=== PATIENT | female | born 1965 | race Caucasian/White ===

== ENCOUNTER → 2016-08-23 | Outpatient (CLI) | payer BC ==
--- NOTE | 2016-08-23 07:57 | MR ---
EXAMINATION TYPE: MR tib fib LT wo/w con DATE OF EXAM: 08/23/2016 7:22 AM COMPARISON: NONE HISTORY: persistent manish edema CONTRAST: Standard multiplanar, multisequence MRI departmental protocol utilizing 15 mL intravenous MultiHance gadolinium contrast. TECHNIQUE: Multiplanar MultiSpin echo imaging of the left tibia and fibula was performed both before and after the administration of contrast. FINDINGS: Within the left tibial diaphysis approximately 21 cm distal to the tibial plateau is anterior cortica l periosteal reaction with cortical thickening. There is a subcortical lesion of decreased signal on T1-weighted data set and of increased signal on the T2-weighted data set measuring approximately 10 m m x 4.5 mm. There may be a small central calcified nidus seen on axial image 22 of 50 post contrast f at sat data set. There is also mild intramedullary edema noted. In addition there is edema of the charan rounding soft tissues anteriorly. No additional lesions are identified. Differential diagnostic possi bilities include intracortical abscess, osteoid osteoma, osteoblastoma among other lesions. IMPRESSION: Periosteal reaction involving the anterior left tibia with subcortical lesion as well as intramedulla ry and surrounding tissue edema. Mild peripheral enhancement suggested on postcontrast imaging. Diff erential diagnostic possibilities discussed above. Strict clinical correlation is advised.
== END | disposition home or self-care (01) ==
LOC: RADMRIMAIN 06:02
PROVIDERS: ATTEND Nurse Practitioner Family
DX: R60.0 Localized edema (principal)
CPT/HCPCS: 73720; A9577

== ENCOUNTER → 2016-10-19 | Outpatient (CLI) | payer BC ==
--- NOTE | 2016-10-19 13:23 | BD ---
EXAMINATION TYPE: MG DEXA axial skeleton. DATE OF EXAM: 10/19/2016 12:58 PM COMPARISON: NONE CLINICAL HISTORY: Z13.820 OSTEOPOROSIS Height: 68 Weight: 182 FRAX RISK QUESTIONS: Alcohol (3 or more units per day): NO Family History (Parent hip fracture): NO Glucocorticoids (More than 3mos): YES (Ex: prednisone, prednisolone, methylprednisolone, dexamethasone, and hydrocortisone). History of Fracture in Adulthood: YES Secondary Osteoporosis: NO 1. Type 1 Diabetes: NO 2. Hyperthyroidism: NO 3. Menopause before 45: NA 4. Malnutrition: NO 5. Chronic liver disease:NO Rheumatoid Arthritis: NO Current Tobacco Use: NO RISK FACTORS HISTORY OF: History of Wrist Fracture: LT WRIST When: AT 46 YRS OLD Other Fractures since Age 50: BILAT STRESS FX BOTH TIB FIBS When: 51 YRS OLD Family History of Osteoporosis: NO Smoke tobacco: NO Drink Alcohol: NO Active: YES, EXCEPT RECENTLY Diet low in dairy products/other sources of calcium: ALLERGIC TO DAIRY, SO , YES Postmenopausal woman: PARTIAL HYST, AT 42 YRS OLD Adrenal Insufficiency: NO MEDICATIONS: Prednisone or other steroids: PREDNISONE, How Lon YRS, FEW YRS BACK Additional Medications: VIT D 2000 MGS, ASPIRIN DAILY, NORCO AND MOTRIN PRN Additional History: ANTIPHOSPHOLIPID ANTIBODY SYNDROME STRESS FX BOTH TIB FIBS EXAM MEASUREMENTS: Bone mineral densitometry was performed using the [employer] System. Bone mineral density as measured about the Lumbar spine is: ----- L1-L4(G/cm2): 1.152 T Score Values are as follows: ----- L1: -1.0 ----- L2: -1.4 ----- L3: 0.3 ----- L4: 0.7 ----- L1-L4: -0.2 Bone mineral density THIS IS HER FIRST BONE DENSITY TEST.....BASELINE Bone mineral density about the R hip (g/cm2): 0.854 Bone mineral density about the L hip (g/cm2): 0.956 T Score values are as follows: -----R Neck: -1.3 -----L Neck: -0.6 -----R Intertrochanter: -1.3 -----L Intertrochanter: -0.5 Bone mineral density FIRST BONE DENSITY SCAN FOR HER.....BASELINE FRAX %'S: 9.1% CHANCE OF A MAJOR OSTEOPOROTIC FX AND A 0.7% FOR A HIP FX.....PROBABILITY OF FX IN 1 0 YRS TIME IMPRESSION: Osteopenia (T Score between -2.5 and -1 as noted by T score values There is slightly increased risk of fracture and the patient may be considered for treatment. Re-Screen 1-2 years. FOR HER RIGHT HIP AND L2 ONLY OF LUMBAR SPINE NOTE: T-SCORE=SD OF THE YOUNG ADULT MEAN.
== END | disposition home or self-care (01) ==
LOC: RADBDWWP 12:21
PROVIDERS: ATTEND Internal Medicine Endocrinology, Diabetes & Metabolism
DX: Z13.820 Encounter for screening for osteoporosis (principal); M85.80 Other specified disorders of bone density and structure, unspecified site
CPT/HCPCS: 77080

== ENCOUNTER → 2016-10-24 | Outpatient (CLI) | payer BC ==
--- NOTE | 2016-10-24 14:40 | NM ---
EXAMINATION TYPE: NM bone scan whole body DATE OF EXAM: 10/24/2016 2:21 PM COMPARISON: MRI 08/23/2016 HISTORY: Stress fractures with nonunion Delayed whole-body scanning was performed following the injection of 24.8 mCi Tc 99m MDP. Images wer e acquired 3 hours post injection. FINDINGS: There is increased uptake within the proximal diaphyseal right tibia cortex. There is focal increased uptake within the region of the distal diaphyseal left fibula. These areas could be related to prior stress fractures. Differential diagnosis from the MRI could also be considered which would include i ntracortical abscess, osteoid osteoma, and osteoblastoma. Bone scan does not eliminate these possibil ities. The right cortical hyperintensities are atypical for metastatic disease. Remainder of the axial and appendicular skeleton within the [id number] is normal radiotracer distr ibution. IMPRESSION: 1. Hyperintensity within the cortex of the proximal diaphyseal right tibia and within the mid diaphys eal left tibia. Plain film correlation is recommended. Plain films aren't available at this location.
== END | disposition home or self-care (01) ==
LOC: RADNMMAIN 10:27
PROVIDERS: ATTEND Orthopaedic Surgery
DX: M84.369 Stress fracture, unspecified tibia and fibula (principal)
CPT/HCPCS: 78306; A9503

== ENCOUNTER → 2017-04-22 | Outpatient (CLI) | payer BC ==
[2017-04-24 08:49] LABS: Mis test requested (Blood) Proteinase-3 Ab
== END | disposition home or self-care (01) ==
LOC: LABWHC1 11:46
PROVIDERS: ATTEND Physician Assistant Medical
DX: M31.30 Wegener's granulomatosis without renal involvement (principal)
CPT/HCPCS: 36415; 82784; 82785; 83516; 84165; 86140

== ENCOUNTER → 2017-11-28 | Outpatient (CLI) | payer BC ==
--- NOTE | 2017-11-29 10:06 | MM ---
Reason for exam: screening (asymptomatic). Last mammogram was performed 7 years and 2 months ago. History: Patient is postmenopausal. Family history of breast cancer in 2 paternal aunts. Physical Findings: A clinical breast exam by your physician is recommended on an annual basis and results should be correlated with mammographic findings. MG 3D Screening Mammo W/Cad Bilateral CC, MLO, and XCCL view(s) were taken. Prior study comparison: October 11, 2010, bilateral digital screening mammo w/CAD. December 09, 2008, bilateral diagnostic digital mammog. The breast tissue is extremely dense which could obscure a lesion on mammography. There is chronic nodularity bilaterally. There is no dominant lesion. No significant changes when compared with prior studies. ASSESSMENT: Benign, BI-RAD 2 RECOMMENDATION: Routine screening mammogram of both breasts in 1 year.
== END | disposition home or self-care (01) ==
LOC: RADMAMWWP 10:49
PROVIDERS: ATTEND Obstetrics & Gynecology
DX: Z12.31 Encounter for screening mammogram for malignant neoplasm of breast (principal); Z80.3 Family history of malignant neoplasm of breast
CPT/HCPCS: 77063; 77067

== ENCOUNTER → 2017-12-24 | Outpatient (CLI) | payer BC ==
[2017-12-24 11:26] LABS: Basophils # (A) 0.1 k/uL (0-0.2); Basophils % (A) 1 %; Eosinophils # (A) 0.1 k/uL (0-0.7); Eosinophils % (A) 2 %; HCT 40.9 % (34.0-46.0); HGB 13.5 gm/dL (11.4-16.0); Lymphocytes # (A) 1.2 k/uL (1.0-4.8); Lymphocytes % (A) 21 %; MCHC 32.9 g/dL (31.0-37.0); Mean Platelet Volume 7.5; Monocytes # (A) 0.4 k/uL (0-1.0); Monocytes % (A) 7 %; Neutrophils # (A) 3.7 k/uL (1.3-7.7); Neutrophils % (A) 67 %; Platelet Count 290 k/uL (150-450); RBC 4.49 m/uL (3.80-5.40); RDW 12.1 % (11.5-15.5); WBC 5.5 k/uL (3.8-10.6)
[2017-12-24 11:33] LABS: ALT 27 U/L (9-52); AST 19 U/L (14-36); Cholesterol 185 mg/dL (<200); Magnesium 1.9 mg/dL (1.6-2.3); Triglycerides 104 mg/dL (<150)
[2017-12-24 11:51] LABS: HCG,Quantitative Serum <2.4 mIU/mL
== END | disposition home or self-care (01) ==
LOC: LABWHC1 10:46
PROVIDERS: ATTEND Dermatology Procedural Dermatology
DX: M31.30 Wegener's granulomatosis without renal involvement (principal)
CPT/HCPCS: 36415; 82465; 82565; 83735; 84450; 84460; 84478; 84702; 85025

== ENCOUNTER → 2018-12-29 | Outpatient (CLI) | payer BC ==
--- NOTE | 2018-12-29 15:18 | US ---
EXAMINATION TYPE: US thyroid st tissue head/neck DATE OF EXAM: 12/29/2018 COMPARISON: NONE CLINICAL HISTORY: E04.2 Nontoxic multinodular goiter. GLAND SIZE: Right Lobe: 5.2 x 1.5 x 1.7 cm Overall Parenchyma: homogenous Left Lobe: 4.5 x 1.2 x 1.5 cm Overall Parenchyma: homogeneous Isthmus Thickness: 0.3 cm NODULES RIGHT: # of nodules measured on right: 1. 1.0 X 0.6 x 1.0 cm hypoechoic solid nodule at the upper pole with well-defined margins. This no dule is wider than tall and shows intranodular vascularity. No prior 2. 1.0 X 0.6 x 0.8 cm anechoic cystic nodule at the lat mid pole with well-defined margins . This n odule is taller than wide and shows no intranodular vascularity. No prior 3. 1.5 X 1.3 x 0.9 cm hypoechoic solid nodule at the lower pole with well-defined marginsinterrupted peripheral calcification. This nodule is taller than wide and shows no intranodular vascularity. LEFT: # of nodules measured on left: 0 subcentimeter nodule noted ISTHMUS: # of nodules measured in the isthmus: 0 Bilateral neck scanned, no evidence of lymphadenopathy. IMPRESSION: Multiple right thyroid nodules measuring up to 1.5 cm. One of these appear cystic and teetee ign. The largest corresponds to a TI-RADS 4 nodule by criteria. (Moderately Suspicious: FNA if ? 1.5 cm; Follow if ? 1 cm). Therefore fine-needle aspiration could be considered given the size of 1.5 cm.
== END | disposition home or self-care (01) ==
LOC: RADUSWWP 14:13
PROVIDERS: ATTEND Family Medicine
DX: E04.2 Nontoxic multinodular goiter (principal)
CPT/HCPCS: 76536

== ENCOUNTER → 2019-04-15 | Outpatient (CLI) | payer BC ==
--- NOTE | 2019-04-17 10:20 | MM ---
Reason for exam: screening (asymptomatic). Last mammogram was performed 1 year and 4 months ago. History: Patient is postmenopausal. Family history of breast cancer in 2 paternal aunts. Physical Findings: A clinical breast exam by your physician is recommended on an annual basis and results should be correlated with mammographic findings. MG 3D Screening Mammo W/Cad Bilateral CC and MLO view(s) were taken. Prior study comparison: November 28, 2017, bilateral MG 3d screening mammo w/cad. October 11, 2010, bilateral digital screening mammo w/CAD. The breast tissue is extremely dense which could obscure a lesion on mammography. Benign appearing bilateral calcifications. No suspicious abnormality. No significant changes when compared with prior studies. ASSESSMENT: Benign, BI-RAD 2 RECOMMENDATION: Routine screening mammogram of both breasts in 1 year.
== END | disposition home or self-care (01) ==
LOC: RADMAMWWP 07:15
PROVIDERS: ATTEND Obstetrics & Gynecology Obstetrics
DX: Z12.31 Encounter for screening mammogram for malignant neoplasm of breast (principal); Z80.3 Family history of malignant neoplasm of breast
CPT/HCPCS: 77063; 77067

== ENCOUNTER → 2019-07-02 | Outpatient (CLI) | payer BC ==
--- NOTE | 2019-07-03 09:53 | US ---
EXAMINATION TYPE: US thyroid st tissue head/neck DATE OF EXAM: 07/02/2019 COMPARISON: 12/29/2018 CLINICAL HISTORY: E04.1 Thyroid Nodule. Thyroid nodule GLAND SIZE: Right Lobe: 5.2 x 1.6 x 2.0 cm Overall Parenchyma: homogenous Left Lobe: 5.0 x 1.1 x 1.5 cm Overall Parenchyma: homogeneous Isthmus Thickness: 0.2 cm NODULES RIGHT: # of nodules measured on right: 3 1. 1.0 X .7 x .9 cm mixed nodule at the mid/upper pole with well-defined margins; . This nodule is wider than tall and shows intranodular vascularity. Prior size: 1.0 x .6 x 1.0 cm 2. 1.1 X .8 x .7 cm cystic nodule at the lower pole with well-defined margins; . This nodule is wid er than tall and shows no intranodular vascularity. Prior size: 1.0 x .6 x .8 cm 3. 1.7 X 1.2 x 1.3 cm hypoechoic solid nodule at the lower pole with well-defined margins; . This n odule is wider than tall and shows intranodular vascularity. Prior size: 1.5 x 1.3 x .9 cm LEFT: # of nodules measured on left: 0 ISTHMUS: # of nodules measured in the isthmus: 0 Bilateral neck scanned, no evidence of lymphadenopathy. IMPRESSION: 1. Interval growth of the TI-RADS 4 right thyroid nodule in comparison to 12/29/2018. Fine-needle aspi ration should be considered. Remaining right nodules are similar in size.
== END | disposition home or self-care (01) ==
LOC: RADUSWWP 15:30
PROVIDERS: ATTEND Otolaryngology
DX: E04.1 Nontoxic single thyroid nodule (principal); R22.0 Localized swelling, mass and lump, head
CPT/HCPCS: 76536

== ENCOUNTER → 2019-08-18 | Outpatient (CLI) | payer BC ==
[2019-08-18 19:04] LABS: T4, Free (Free Thyroxine) 1.3 ng/dL (0.80-1.80)
== END | disposition home or self-care (01) ==
LOC: LABWHC1 12:00
PROVIDERS: ATTEND Otolaryngology
DX: E04.1 Nontoxic single thyroid nodule (principal); R53.83 Other fatigue
CPT/HCPCS: 36415; 84439; 84443

== ENCOUNTER → 2020-04-07 | Outpatient (CLI) | payer BC ==
--- NOTE | 2020-04-08 12:44 | US ---
EXAMINATION TYPE: US thyroid st tissue head/neck DATE OF EXAM: 04/07/2020 COMPARISON: NONE CLINICAL HISTORY: E04.1 thyroid nodule. follow up thyroid nodule GLAND SIZE: Right Lobe: 5.4 x 1.5 x 1.8 cm Overall Parenchyma: homogenous Left Lobe: 4.2 x 1.1 x 1.6 cm Overall Parenchyma: homogeneous Isthmus Thickness: 0.3 cm NODULES RIGHT: # of nodules measured on right: 2 1. 1.2 X 0.8 x 1.0 cm mixed nodule at the mid pole with poorly defined margins; . This nodule is w ider than tall and shows intranodular vascularity. Prior size: 1.0 x 0.7 x 0.9 cm 2. 1.7 X 1.3 x 1.5 cm hypoechoic solid nodule at the lower pole with well-defined margins; . This n odule is wider than tall and shows intranodular vascularity. Prior size: 1.7 x 1.2 x 1.3 cm LEFT: # of nodules measured on left: 0 ISTHMUS: # of nodules measured in the isthmus: 0 Bilateral neck scanned, no evidence of lymphadenopathy. IMPRESSION: Dominant lesion inferior pole right lobe of the thyroid gland is TR 4, moderately suspicious, FNA is recommended due to size greater than 1.5 cm. Midpole right lobe thyroid gland nodule also moderately suspicious, additional follow-up recommended at 1, 2, 3 years to assess for interval growth
== END | disposition home or self-care (01) ==
LOC: RADUSWWP 16:11
PROVIDERS: ATTEND Otolaryngology
DX: E04.1 Nontoxic single thyroid nodule (principal)
CPT/HCPCS: 76536

== ENCOUNTER 2020-04-25 12:06 | Day surgery (SDC) | payer BC ==
[2020-04-25] MEDS ORDERED: ALPRAZolam 0.5 MG TAB PO STA (12:54)
[2020-04-25 14:28] VITALS: RESP 18; TEMP 98.4
[2020-04-25 14:29] VITALS: BP 138/70; PULSE 74
--- NOTE | 2020-04-25 14:59 | US ---
EXAMINATION TYPE: US FNA thyroid each add lesion, US FNA first lesion DATE OF EXAM: 04/25/2020 COMPARISON: Ultrasound 04/07/2020, 12/29/2018 HISTORY: Thyroid nodules. Maximal barrier technique was utilized. After informed consent, skin overlying the right mid pole th yroid nodule was localized with ultrasound and the overlying skin prepped and draped. Ultrasound was utilized using sterile technique. Lidocaine was used for local anesthesia. Five passes with a 25-gau ge needle were made into the nodule and aspirated specimen was submitted to cytology. Using similar t echnique the dominant nodule in the lower pole the right lobe of the gland was sampled. 5 passes unde r ultrasound guidance were made with a 25-gauge needle and specimen submitted to cytology. Following the procedure hemostasis achieved. No immediate complication. The patient discharged in stable cond ition. IMPRESSION: STATUS POST ULTRASOUND GUIDED FINE NEEDLE ASPIRATION OF THYROID NODULES, PATHOLOGY IS MAHESH BUCKNER. THIS PROCEDURE WAS PERFORMED BY THE UNDERSIGNED.
== END 2020-04-25 14:30 | disposition home or self-care (01) ==
LOC: RADPROMAIN 12:06
PROVIDERS: ATTEND Otolaryngology
DX: E04.2 Nontoxic multinodular goiter (principal)
CPT/HCPCS: 10005; 10006; 88173; 88305

== ENCOUNTER → 2020-06-10 | Outpatient (CLI) | payer BC ==
--- NOTE | 2020-06-13 13:24 | MM ---
Reason for exam: screening (asymptomatic). Last mammogram was performed 1 year and 2 months ago. History: Patient is postmenopausal. Family history of breast cancer in 2 paternal aunts. Physical Findings: A clinical breast exam by your physician is recommended on an annual basis and results should be correlated with mammographic findings. MG 3D Screening Mammo W/Cad Bilateral CC and MLO view(s) were taken. Prior study comparison: April 15, 2019, bilateral MG 3d screening mammo w/cad. November 28, 2017, bilateral MG 3d screening mammo w/cad. The breast tissue is extremely dense which could obscure a lesion on mammography. No significant changes when compared with prior studies. ASSESSMENT: Benign, BI-RAD 2 RECOMMENDATION: Routine screening mammogram of both breasts in 1 year.
== END | disposition home or self-care (01) ==
LOC: RADMAMWWP 13:51
PROVIDERS: ATTEND Obstetrics & Gynecology Obstetrics
DX: Z12.31 Encounter for screening mammogram for malignant neoplasm of breast (principal)
CPT/HCPCS: 77063; 77067

== ENCOUNTER → 2021-06-02 | Outpatient (CLI) | payer BC ==
[2021-06-02 15:09] LABS: Basophils # (A) 0.03 X 10*3/uL (0.00-0.10); Basophils % (A) 0.4 %; Eosinophils # (A) 0.72 X 10*3/uL (0.04-0.35); HCT 40.2 % (37.2-46.3); HGB 12.9 g/dL (12.0-15.0); Lymphocytes # (A) 1.25 X 10*3/uL (0.90-5.00); Lymphocytes % (A) 15.7 %; MCH 29.5 pg (27.0-32.0); MCHC 32.1 g/dL (32.0-37.0); Mean Platelet Volume 11.4 fL (9.5-12.2); Monocytes # (A) 0.55 X 10*3/uL (0.20-1.00); Monocytes % (A) 6.9 %; Neutrophils # (A) 5.41 X 10*3/uL (1.80-7.70); Neutrophils % (A) 67.7 %; Platelet Count 295 X 10*3/uL (140-440); RBC 4.37 X 10*6/uL (4.10-5.20); RDW 12.3 % (11.5-14.5); WBC 7.98 X 10*3/uL (4.50-10.00)
[2021-06-02 16:27] LABS: African American GFR (CKD) 114.5 (60.0-200.0); Albumin 4.2 g/dL (3.8-4.9); Albumin/Globulin Ratio 1.35 (1.60-3.17); Anion Gap 11.6 mmol/L (4.00-12.00); BUN/Creat Ratio 14.83 Ratio (12.00-20.00); Blood Urea Nitrogen 9.8 mg/dL (9.0-27.0); C Reactive Protein 0.3 mg/dL (0.00-0.80); Calcium 9.3 mg/dL (8.7-10.3); Carbon Dioxide 22.9 mmol/L (21.6-31.8); Estradiol 33.1 pg/mL; Follicle Stimulating Hormone 8.8 mIU/mL; Globulin 3.1 g/dL (1.6-3.3); Luteinizing Hormone 4.4 mIU/mL; Non-African American GFR(CKD) 98.8 (60.0-200.0); Potassium 4.3 mmol/L (3.5-5.5); T4, Free (Free Thyroxine) 1.24 ng/dL (0.800-1.800); Total Bilirubin 0.5 mg/dL (0.30-1.20); Total Protein 7.3 g/dL (6.2-8.2)
[2021-06-02 17:48] LABS: Erythrocyte Sedimentation Rate 27 mm/Hr (0-30)
== END | disposition home or self-care (01) ==
LOC: LABWHC1 09:52
PROVIDERS: ATTEND Family Medicine
DX: Z12.11 Encounter for screening for malignant neoplasm of colon (principal); Z12.31 Encounter for screening mammogram for malignant neoplasm of breast; D68.61 Antiphospholipid syndrome; R53.83 Other fatigue; M85.80 Other specified disorders of bone density and structure, unspecified site; Z80.0 Family history of malignant neoplasm of digestive organs; Z68.24 Body mass index [BMI] 24.0-24.9, adult
CPT/HCPCS: 36415; 80053; 82670; 83001; 83002; 84144; 84439; 84443; 85025; 85652; 86038; 86140

== ENCOUNTER → 2021-06-30 | Outpatient (CLI) | payer BC ==
--- NOTE | 2021-06-30 16:09 | BD ---
EXAMINATION TYPE: Axial Bone Density DATE OF EXAM: 06/30/2021 COMPARISON: 10/19/2016 CLINICAL HISTORY: Height: 68.5 IN Weight: 171 LBS FRAX RISK QUESTIONS: Secondary Osteoporosis: 3. Menopause before 45: PARTIAL HYST AGE 44 RISK FACTORS HISTORY OF: History of Wrist Fracture: LT WRIST AGE 45 Family History of Osteoporosis: FATHER AND MOTHER Active: YES Diet low in dairy products/other sources of calcium: YES Postmenopausal woman: PARTIAL HYST AGE 44 MEDICATIONS: Additional Medications: CALCIUM, VIT D, ASPIRIN, ZYRTEC, ZINC, VIT C, MAGNESIUM Additional History: PT HAD 4 RADIATION TREATMENTS 8 YEARS AGO TO MAKE SURE THEY HAD FOUND PTS PROBLEM EXAM MEASUREMENTS: Bone mineral densitometry was performed using the [employer] System. Bone mineral density as measured about the Lumbar spine is: ----- L1-L4(G/cm2): 1.080 T Score Values are as follows: ----- L2: -2.1 ----- L3: -0.4 ----- L4: -0.1 ----- L1-L4: -0.8 Bone mineral density has: Decreased -7.5% since study of: 10/19/2016 Bone mineral density about the R hip (g/cm2): 0.825 Bone mineral density about the L hip (g/cm2): 0.884 T Score values are as follows: -----R Neck: -1.5 -----L Neck: -1.1 -----R Total: -1.5 -----L Total: -1.1 Bone mineral density has: Decreased -4.1% since study of: 10/19/2016 IMPRESSION: Osteopenia (T Score between -2.5 and -1). There is slightly increased risk of fracture and the patient may be considered for treatment. Re-Screen 2-5 years. NOTE: T-SCORE=SD OF THE YOUNG ADULT MEAN.
--- NOTE | 2021-07-04 11:35 | MM ---
Reason for exam: screening (asymptomatic). Last mammogram was performed 1 year and 1 month ago. History: Patient is postmenopausal. Family history of breast cancer in 2 paternal aunts. Physical Findings: A clinical breast exam by your physician is recommended on an annual basis and results should be correlated with mammographic findings. MG 3D Screening Mammo W/Cad Bilateral CC and MLO view(s) were taken. Prior study comparison: June 10, 2020, bilateral MG 3d screening mammo w/cad. April 15, 2019, bilateral MG 3d screening mammo w/cad. The breast tissue is heterogeneously dense. This may lower the sensitivity of mammography. Grouped calcifications posterior central left MLO view not clearly identified on CC. ASSESSMENT: Incomplete: need additional imaging evaluation, BI-RAD 0 RECOMMENDATION: Special view mammogram of the left breast. (magnification) [facility] will attempt to contact patient to return for supplemental views.
== END | disposition home or self-care (01) ==
LOC: RADBDWWP 14:45
PROVIDERS: ATTEND Family Medicine
DX: Z12.31 Encounter for screening mammogram for malignant neoplasm of breast (principal); M85.80 Other specified disorders of bone density and structure, unspecified site
CPT/HCPCS: 77063; 77067; 77080

== ENCOUNTER → 2021-07-10 | Outpatient (CLI) | payer BC ==
--- NOTE | 2021-07-10 15:47 | CT ---
EXAMINATION TYPE: CT sinus wo con DATE OF EXAM: 07/10/2021 COMPARISON: CT facial bones 2011. HISTORY: chronic sinusitis CT DLP: 404 mGycm. Automated Exposure Control for Dose Reduction was Utilized. TECHNIQUE: CT scan of the sinuses is performed without contrast, axial images are obtained, coronal r eformatted images are also reviewed. FINDINGS: The paranasal sinuses including the frontal, ethmoid, sphenoid, and maxillary sinuses bila terally are well-aerated without abnormal opacification or suspicious air-fluid levels. The ostiomea matthias complex remains patent bilaterally on coronal image 17. Nasal septum remains deviated to right of midline. Visualized portion of mastoid air cells show no abnormal opacification. The globes are intact bilater ally. IMPRESSION: The paranasal sinuses remain clear and the ostiomeatal complex is patent bilaterally.
== END | disposition home or self-care (01) ==
LOC: RADCTMAIN 15:11
PROVIDERS: ATTEND Otolaryngology
DX: J32.9 Chronic sinusitis, unspecified (principal)
CPT/HCPCS: 70486

== ENCOUNTER → 2021-07-12 | Outpatient (CLI) | payer BC ==
--- NOTE | 2021-07-12 10:26 | MM ---
Reason for exam: additional evaluation requested from abnormal screening. Last mammogram was performed less than 1 month ago. History: Family history of breast cancer in 2 paternal aunts at age 60. Physical Findings: Nurse did not find any significant physical abnormalities on exam. MG 3D Work Up W/Cad LT CC with magnification, LM with magnification, LM, CC, XCCL, and XCCM view(s) were taken of the left breast. Prior study comparison: June 30, 2021, bilateral MG 3d screening mammo w/cad. June 10, 2020, bilateral MG 3d screening mammo w/cad. The breast tissue is heterogeneously dense. This may lower the sensitivity of mammography. The far posterior left breast calcifications are not as apparent on the magnification views. 6 month follow up recommended. No clearly identified on XCCL or magnification lateral. These results were verbally communicated with the patient and result sheet given to the patient on 07/12/21. ASSESSMENT: Probably benign, BI-RAD 3 RECOMMENDATION: Follow-up diagnostic mammogram of the left breast in 6 months.
== END | disposition home or self-care (01) ==
LOC: RADMAMWWP 08:30
PROVIDERS: ATTEND Family Medicine
DX: R92.1 Mammographic calcification found on diagnostic imaging of breast (principal); Z80.3 Family history of malignant neoplasm of breast
CPT/HCPCS: 77061; 77065

== ENCOUNTER → 2021-12-11 | Outpatient (CLI) | payer BC ==
--- NOTE | 2021-12-11 15:18 | US ---
EXAMINATION TYPE: US thyroid st tissue head/neck DATE OF EXAM: 12/11/2021 COMPARISON: Prior ultrasound 2019 CLINICAL HISTORY: E04.1 THYROID NODULE. GLAND SIZE: Right Lobe: 5.7 x 1.4 x 1.5 cm Overall Parenchyma: homogenous Left Lobe: 4.3 x 4.6 x 1.2 cm Overall Parenchyma: homogeneous Isthmus Thickness: 0.3 cm NODULES RIGHT: # of nodules measured on right: 1. 1.8 X 1.2 x 0.9 cm, lower, mixed cystic and solid, hypoechoic nodule, which is wider than tall, with smooth margins, without echogenic foci. Prior size:1.7 X 1.3 x 1.5cm 2. 1.1 X 0.6 x 0.7 cm, mid , solid or almost completely solid, hypoechoic nodule, which is wider th an tall, with smooth margins, without echogenic foci. Prior size:1.2 X 0.8 x 1.0cm LEFT: # of nodules measured on left: 0 ISTHMUS: # of nodules measured in the isthmus: 0 Bilateral neck scanned, no evidence of lymphadenopathy. Homogeneous normal-sized thyroid with stable right-sided nodules. IMPRESSION: As above. No new suspicious nodules are seen.
== END | disposition home or self-care (01) ==
LOC: RADUSWWP 14:16
PROVIDERS: ATTEND Otolaryngology
DX: E04.1 Nontoxic single thyroid nodule (principal)
CPT/HCPCS: 76536

== ENCOUNTER → 2022-01-11 | Outpatient (CLI) | payer BC ==
--- NOTE | 2022-01-11 13:41 | MM ---
Reason for Exam: Follow-up at short interval from prior study. Last screening mammogram was performed 6 month(s) ago. Patient History: Menarche at age 14. First Full-Term at age 25. Hysterectomy at age 42. Patient has history of breast feeding. Paternal aunt had breast cancer, age 60. Paternal aunt had breast cancer, age 60. Risk Values: Devorah 5 year model risk: 1.2%. NCI Lifetime model risk: 8.1%. Prior Study Comparison: 11/28/2017 Bilateral Screening Mammogram, [facility]. 04/15/2019 Bilateral Screening Mammogram, [facility]. 06/10/2020 Bilateral Screening Mammogram, [facility]. 06/30/2021 Bilateral Screening Mammogram, [facility]. 07/12/2021 Left Diagnostic Mammogram, [facility]. Tissue Density: Left: The breast tissue is extremely dense which could obscure a lesion on mammography. Findings: Analyzed By CAD. Pattern appears stable. There are a few benign appearing punctate calcifications in a regional distribution. These appear stable from comparison. No suspicious spiculated or lobular masses evident. No cluster of microcalcifications is evident. Overall Assessment: Benign, BI-RAD 2 Management: Screening Mammogram of both breasts in 6 months. A clinical breast exam by your physician is recommended on an annual basis and results should be correlated with mammographic findings. This exam should not preclude additional follow-up of suspicious palpable abnormalities. Results were given to the patient verbally at the time of exam. Electronically signed and approved by: Greg Stephen D.O. Radiologis
== END | disposition home or self-care (01) ==
LOC: RADMAMWWP 12:57
PROVIDERS: ATTEND Family Medicine
DX: R92.1 Mammographic calcification found on diagnostic imaging of breast (principal); Z80.3 Family history of malignant neoplasm of breast
CPT/HCPCS: 77061; 77065

== ENCOUNTER → 2022-06-26 | Outpatient (CLI) | payer BC ==
[2022-06-26 19:24] LABS: Rheumatoid Factor, Qnt <10 IU/mL (0-15)
== END | disposition home or self-care (01) ==
LOC: LABWHC1 12:10
PROVIDERS: ATTEND Otolaryngology
DX: M19.90 Unspecified osteoarthritis, unspecified site (principal); R53.83 Other fatigue
CPT/HCPCS: 36415; 85652; 86141; 86431

== ENCOUNTER → 2022-07-20 | Outpatient (CLI) | payer BC ==
--- NOTE | 2022-07-23 18:42 | MM ---
Reason for Exam: Screening (asymptomatic). Last screening mammogram was performed 12 month(s) ago. Patient History: Menarche at age 14. First Full-Term at age 25. Hysterectomy at age 42. Patient has history of breast feeding. Paternal aunt had breast cancer, age 60. Paternal aunt had breast cancer, age 60. Risk Values: Devorah 5 year model risk: 1.3%. NCI Lifetime model risk: 8.0%. Prior Study Comparison: 06/30/2021 Bilateral Screening Mammogram, [facility]. 07/12/2021 Left Diagnostic Mammogram, [facility]. 01/11/2022 Left MG 3D diag mammo w/cad LT, [facility]. Tissue Density: The breast tissue is heterogeneously dense. This may lower the sensitivity of mammography. Findings: Analyzed By CAD. There is no suspicious group of microcalcifications or new suspicious mass in either breast. Overall Assessment: Negative, BI-RAD 1 Management: Screening Mammogram of both breasts in 1 year. 1. Patient should continue monthly self breast exams. 2. A clinical breast exam by your physician is recommended on an annual basis. 3. This exam should not preclude additional follow-up of suspicious palpable abnormalities. Electronically signed and approved by: Tanisha Arredondo M.D. Radiologist
== END | disposition home or self-care (01) ==
LOC: RADMAMWWP 14:34
PROVIDERS: ATTEND Family Medicine
DX: Z12.31 Encounter for screening mammogram for malignant neoplasm of breast (principal); Z80.3 Family history of malignant neoplasm of breast
CPT/HCPCS: 77063; 77067

== ENCOUNTER → 2022-11-23 | Outpatient (CLI) | payer BC ==
[2022-11-23 11:15] LABS: Basophils # (A) 0.07 X 10*3/uL (0.00-0.10); Basophils % (A) 1.1 %; Eosinophils # (A) 0.29 X 10*3/uL (0.04-0.35); Eosinophils % (A) 4.6 %; Immature Grans, Automated 0.3 %; Lymphocytes # (A) 1.82 X 10*3/uL (0.90-5.00); MCH 29.2 pg (27.0-32.0); MCHC 31.7 g/dL (32.0-37.0); MCV 92.1 fL (80.0-97.0); Mean Platelet Volume 10.8 fL (9.5-12.2); Monocytes # (A) 0.53 X 10*3/uL (0.20-1.00); Monocytes % (A) 8.5 %; NRBC Per 100 WBC 0 /100 WBCS (0.0-0.0); Neutrophils # (A) 3.54 X 10*3/uL (1.80-7.70); Neutrophils % (A) 56.5 %; Platelet Count 317 X 10*3/uL (140-440); RBC 4.45 X 10*6/uL (4.10-5.20); RDW 11.9 % (11.5-14.5); WBC 6.27 X 10*3/uL (4.50-10.00)
[2022-11-23 11:41] LABS: Erythrocyte Sedimentation Rate 45 mm/Hr (0-30)
[2022-11-23 11:45] LABS: ALT 15 U/L (8-44); AST 17 U/L (13-35); African American GFR (CKD) 111.6 (60.0-200.0); Albumin 4.3 g/dL (3.8-4.9); Albumin/Globulin Ratio 1.31 (1.60-3.17); Alkaline Phosphatase 85 U/L (41-126); BUN/Creat Ratio 14.76 Ratio (12.00-20.00); Blood Urea Nitrogen 10.3 mg/dL (9.0-27.0); C Reactive Protein <0.30 mg/dL (0.00-0.80); Calcium 9.9 mg/dL (8.7-10.3); Carbon Dioxide 24.9 mmol/L (20.0-27.5); Chloride 107 mmol/L (96-109); Chol/HDL Ratio 2.64 Ratio; Globulin 3.3 g/dL (1.6-3.3); Glucose 95 mg/dL (70-110); LDL Cholesterol,Calculated 100.7 mg/dL (0.0-131.0); Non-African American GFR(CKD) 96.3 (60.0-200.0); Potassium 4.4 mmol/L (3.5-5.5); Sodium 144 mmol/L (135-145); Total Protein 7.6 g/dL (6.2-8.2); VLDL Calculation 17.18 mg/dL (5.00-40.00)
[2022-11-23 16:53] LABS: Cardiolipin Ab IgG Interp NEGATIVE (NEGATIVE); Cardiolipin Ab IgM Interp NEGATIVE (NEGATIVE); Cardiolipin IgA Antibody <2.0 U/mL; Cardiolipin IgM Antibody <1.5 U/mL
== END | disposition home or self-care (01) ==
LOC: LABWHC1 07:24
PROVIDERS: ATTEND Family Medicine
DX: Z00.01 Encounter for general adult medical examination with abnormal findings (principal); Z13.220 Encounter for screening for lipoid disorders; Z13.29 Encounter for screening for other suspected endocrine disorder; D68.61 Antiphospholipid syndrome; M85.80 Other specified disorders of bone density and structure, unspecified site; R53.83 Other fatigue
CPT/HCPCS: 36415; 80053; 80061; 82306; 82607; 84443; 85025; 85613; 85652; 85730; 86140; 86147

== ENCOUNTER → 2023-06-03 | Outpatient (CLI) | payer BC ==
--- NOTE | 2023-06-03 14:53 | US ---
EXAMINATION TYPE: US thyroid st tissue head/neck DATE OF EXAM: 06/03/2023 COMPARISON: NONE CLINICAL INDICATION: Female, 58 years old with history of E04.1NONTOXIC SINGLE THYROID NODULE; Follow up thyroid nodules GLAND SIZE: Right Lobe: 5.0 x 1.6 x 1.8 cm Overall Parenchyma: homogeneous Left Lobe: 4.8 x 1.7 x 1.7 cm Overall Parenchyma: homogeneous Isthmus Thickness: 0.3 cm NODULES RIGHT: # of nodules measured on right: 2 1. 1.5 X 1.3 x 1.4 cm, lower , mixed cystic and solid, hypoechoic nodule, which is wider than tall, with smooth margins, with echogenic foci. Prior size: 1.8 x 0.9 x 1.2 cm 2. 1.1 X 0.7 x 0.9 cm, mid , solid or almost completely solid, hypoechoic nodule, which is wider th an tall, with ill-defined margins, without echogenic foci. Prior size: 1.1 x 0.6 x 0.7 cm LEFT: # of nodules measured on left: 0 ISTHMUS: # of nodules measured in the isthmus: 0 Bilateral neck scanned, no evidence of lymphadenopathy. IMPRESSION: As above. No new suspicious nodules are seen.
== END | disposition home or self-care (01) ==
LOC: RADUSWWP 14:25
PROVIDERS: ATTEND Otolaryngology
DX: E04.2 Nontoxic multinodular goiter (principal)
CPT/HCPCS: 76536

== ENCOUNTER → 2024-01-09 | Outpatient (CLI) | payer BC ==
[2024-01-09 14:21] LABS: Basophils # (A) 0.08 X 10*3/uL (0.00-0.10); Basophils % (A) 1.1 %; Eosinophils # (A) 0.52 X 10*3/uL (0.04-0.35); HCT 39.6 % (37.2-46.3); HGB 12.7 g/dL (12.0-15.0); Lymphocytes % (A) 21.6 %; MCH 29.1 pg (27.0-32.0); MCHC 32.1 g/dL (32.0-37.0); MCV 90.8 FL (80.0-97.0); Mean Platelet Volume 10.9 FL (9.5-12.2); Monocytes % (A) 6.7 %; NRBC Per 100 WBC 0 X 10*3/uL (0.00-0.01); Neutrophils % (A) 63.5 %; Platelet Count 303 X 10*3/uL (140-440); RBC 4.36 X 10*6/uL (4.10-5.20); RDW 11.9 % (11.5-14.5); WBC 7.41 X 10*3/uL (4.50-10.00)
[2024-01-09 14:55] LABS: ALT 18 U/L (8-44); AST 18 U/L (13-35)
[2024-01-09 15:03] LABS: Hepatitis B Surface Antigen Nonreactive (Nonreactive); Hepatitis C IgG Antibody Nonreactive (Nonreactive)
[2024-01-09 16:03] LABS: Hepatitis B Surface AB- Quant 3.5 mIU/mL
== END | disposition home or self-care (01) ==
LOC: LABWHC1 11:41
PROVIDERS: ATTEND Dermatology MOHS-Micrographic Surgery
DX: L40.0 Psoriasis vulgaris (principal); Z79.899 Other long term (current) drug therapy
CPT/HCPCS: 36415; 82565; 84450; 84460; 85025; 86480; 86704; 86706; 86803; 87340

== ENCOUNTER 2024-05-06 08:39 | Observation (INO) | payer BC ==
[2024-05-06] MEDS: DILTIAZEM 125 MG in SODIUM CHLORIDE 0.9% 100 ML IV SCH (09:27)
[2024-05-06] MEDS: SODIUM CHLORIDE 0.9% 1,000 ML IV STA (09:27)
[2024-05-06] MEDS: DILTIAZEM DRIP BOLUS FROM BAG 1 MG SOLN IV ONE (09:27)
[2024-05-06] MEDS: ASPIRIN 81 MG PO STA (09:28)
--- NOTE | 2024-05-06 09:40 | XR ---
EXAMINATION TYPE: XR chest 1V portable DATE OF EXAM: 05/06/2024 9:21 AM CLINICAL INDICATION: Female, 59 years old with history of chest pain; [facility] COMPARISON: None TECHNIQUE: XR chest 1V portable Frontal view of the chest. FINDINGS: Lungs/Pleura: There is no evidence of pleural effusion, focal consolidation, or pneumothorax. Pulmonary vascularity: Unremarkable. Heart/mediastinum: Cardiomediastinal silhouette is unremarkable. Musculoskeletal: No acute osseous pathology. IMPRESSION: No acute cardiopulmonary disease/process. [facility], , 05/06/2024 9:38 AM
[2024-05-06 09:41] LABS: INR 0.9 (<1.2); Partial Thromboplastin Time 22.6 sec (22.0-30.0); Prothrombin Time 9.8 sec (10.0-12.5)
[2024-05-06 09:51] LABS: ALT 204 U/L (4-34); AST 102 U/L (14-36); African American GFR (CKD) >90 (>60 ml/min/1.73 sqM); Albumin 3.9 g/dL (3.5-5.0); Alkaline Phosphatase 383 U/L (38-126); Anion Gap 12 mmol/L; Basophils % (A) 0 %; Blood Urea Nitrogen 12 mg/dL (7-17); Calcium 9.7 mg/dL (8.4-10.2); Carbon Dioxide 24 mmol/L (22-30); Chloride 106 mmol/L (98-107); Eosinophils # (A) 0.8 k/uL (0-0.7); Eosinophils % (A) 8 %; Glucose 132 mg/dL (74-99); HCT 40.5 % (34.0-46.0); HGB 13.6 gm/dL (11.4-16.0); Lymphocytes # (A) 1.3 k/uL (1.0-4.8); Lymphocytes % (A) 13 %; MCH 29.5 pg (25.0-35.0); MCHC 33.6 g/dL (31.0-37.0); Magnesium 2.1 mg/dL (1.6-2.3); Mean Platelet Volume 9.2; Monocytes # (A) 0.5 k/uL (0-1.0); Monocytes % (A) 5 %; Neutrophils # (A) 7.3 k/uL (1.3-7.7); Neutrophils % (A) 72 %; Non-African American GFR(CKD) >90 (>60 ml/min/1.73 sqM); Platelet Count 311 k/uL (150-450); Potassium 4.1 mmol/L (3.5-5.1); RDW 12.6 % (11.5-15.5); Sodium 142 mmol/L (137-145); Total Bilirubin 2.4 mg/dL (0.2-1.3); WBC 10.1 k/uL (3.8-10.6)
[2024-05-06 09:58] LABS: NT-Pro-B-Type Natriuretic Pept 2660 pg/mL
[2024-05-06 10:06] LABS: Appearance,Urine Clear (Clear); Bilirubin,Urine Negative (Negative); Blood,Urine Negative (Negative); Color,Urine Colorless; Glucose,Urine (UA) Negative (Negative); Ketones,Urine 1+ (Negative); Leukocyte Esterase,Urine Negative (Negative); Nitrite,Urine Negative (Negative); PH, Urine 6.5 (5.0-8.0); Protein,Urine Negative (Negative); Specific Gravity,Urine 1.003 (1.001-1.035); Urobilinogen,Urine <2.0 mg/dL (<2.0)
--- NOTE | 2024-05-06 11:04 | CT ---
EXAMINATION TYPE: CT chest angio for PE CT DLP: 280.6 mGycm, Automated exposure control for dose reduction was used. DATE OF EXAM: 05/06/2024 10:44 AM COMPARISON: Chest radiograph from same day. CLINICAL INDICATION:Female, 59 years old with history of new onset afib. eval for pe; New Onset a-fib , Eval for PE TECHNIQUE/CONTRAST: CTA scan of the thorax is performed with IV Contrast, patient injected with 100 ml mL of Isovue 370, pulmonary embolism protocol. MIP images are created and reviewed. FINDINGS: Pulmonary Artery: There is no evidence for a filling defect within the pulmonary vasculature to sugge st acute pulmonary embolism. The pulmonary artery is of normal size. Lungs/Pleura: No evidence of focal consolidation, pleural effusion or pneumothorax. Biapical pleural- parenchymal scarring. Patchy groundglass nodular opacities within the bilateral upper lobes and right middle lobe. Dependent bibasilar suspect atelectasis. Airway: Large airways are patent. Heart: Heart is within normal limits for size. Tiny anterior pericardial effusion. Vasculature: No evidence of aortic aneurysm. Mediastinum: No gross evidence of adenopathy. Musculoskeletal: No acute osseous abnormalities. Moderate degenerative disc disease at T11-T12. Soft Tissues: Unremarkable. Lower neck: No significant findings. Upper Abdomen: Small hiatal hernia. IMPRESSION: 1. No evidence of pulmonary embolism. 2. Several scattered bilateral upper lobe and right middle lobe nodular groundglass opacities concern ing for atypical infection versus inflammation versus other. Follow-up CT chest in 3 months is recomm ended. [facility], , 05/06/2024 11:02 AM
--- NOTE | 2024-05-06 12:59 | US ---
EXAMINATION TYPE: US venous doppler duplex LE BI DATE OF EXAM: 05/06/2024 12:44 PM COMPARISON: NONE CLINICAL INDICATION: Female, 59 years old with history of eval for DVT; Difficulty breathing. No red ness. Elevated ddimer. Hx vein ablation. TECHNIQUE: The lower extremity deep venous system is examined utilizing real time linear array sonog shonda with graded compression, color doppler sonography, and spectral doppler. SIDE PERFORMED: Bilateral FINDINGS: VESSELS IMAGED: Common Femoral Vein Deep Femoral Vein Greater Saphenous Vein * Femoral Vein Popliteal Vein Small Saphenous Vein * Proximal Calf Veins (* superficial vessels) Right Leg: Negative for DVT Left Leg: Negative for DVT Grayscale, color doppler, spectral doppler imaging performed of the deep veins of the lower extremiti es. IMPRESSION: No ultrasound evidence for deep venous thrombosis of either lower extremity. [facility], , 05/06/2024 12:57 PM
--- NOTE | 2024-05-06 13:00 | US ---
EXAMINATION TYPE: US gallbladder DATE OF EXAM: 05/06/2024 COMPARISON: NONE CLINICAL INDICATION: Female, 59 years old with history of eval gall bladder; Difficulty breathing. TECHNIQUE: Grayscale and color Doppler imaging of the right upper quadrant was performed. FINDINGS: EXAM MEASUREMENTS: Liver Length: 16.5 cm Gallbladder Wall: 0.2 cm CBD: 0.4 cm Right Kidney: 11.0 x 5.3 x 5.2 cm Pancreas: wnl Liver: wnl Gallbladder: No stones or wall thickening seen at time of scan Evidence for sonographic Patel's sign: neg CBD: wnl Right Kidney: No hydronephrosis or masses seen The visualized portions of the pancreas and liver are unremarkable without focal lesion. Gallbladder is unremarkable without evidence of wall thickening, stones, or surrounding fluid. Negative sonograph ic Patel's sign. Common bile duct is within normal limits. Right kidney demonstrates no hydronephros is, nephrolithiasis or mass. IMPRESSION: Unremarkable right upper quadrant ultrasound. [facility], , 05/06/2024 12:58 PM
[2024-05-06] MEDS: HEPARIN SODIUM 1,000 UN/ML (10ML VL) IV ONE (13:07)
[2024-05-06] MEDS: HEPARIN SOD,PORK IN 0.45% NACL 25,000 UNIT in 0.45% NACL 1 250ML.BAG IV SCH (13:13)
[2024-05-06] MEDS ORDERED: NALOXONE 0.4 MG/ML 1 ML VIAL IV PRN (13:19)
[2024-05-06] MEDS ORDERED: ONDANSETRON 4 MG/2 ML VIAL IVP PRN (13:19)
--- NOTE | 2024-05-06 13:19 | ED ---
General Adult HPI - General Chief complaint: Arrhythmia/Palpitations Stated complaint: Cardiac issues Time Seen by Provider: 05/06/24 09:03 Source: patient, RN notes reviewed, old records reviewed Mode of arrival: ambulatory Limitations: no limitations - History of Present Illness Initial comments: Patient is a 59-year-old female presents emerged department complaining of palpitations I woke up this morning. Denies any history of cardiac disease. Denies any chest pain, shortness of breath. Does admit history of thyroid disorder and antiphospholipid syndrome. Is not on blood thinners. Denies any fevers, chills, cough. Denies any nausea or vomiting. Denies diarrhea or abdominal pain. Has no other acute complaints - Related Data Home Medications Medication Instructions Recorded Confirmed Aspirin 325 mg PO HS 04/15/20 05/06/24 Cetirizine HCl [Zyrtec] 10 mg PO HS 04/15/20 05/06/24 Allergies Allergy/AdvReac Type Severity Reaction Status Date / Time cephalexin [From Keflex] Allergy Rash/Hives Verified 05/06/24 10:49 dapsone Allergy stopped Verified 05/06/24 10:49 breathing erythromycin base Allergy Rash/Hives Verified 05/06/24 10:49 diflunisal [From Dolobid] AdvReac Rash/Hives Verified 05/06/24 10:49 antibiotic Allergy Rash/Hives Uncoded 05/06/24 10:49 eye drops for cataract Allergy Rash/Hives Uncoded 05/06/24 10:49 surgery Review of Systems ROS Statement: Those systems with pertinent positive or pertinent negative responses have been documented in the HPI. Review of Systems: CONST: Denies fever EYES: Denies blurry vision ENT: Denies nasal congestion C/V: Endorses palpitations RESP: Denies shortness of breath GI: Denies abdominal pain : Denies dysuria SKIN: Denies rash. MSK: Denies joint pain. NEURO: Denies headache ROS Other: All systems not noted in ROS Statement are negative. Past Medical History Past Medical History: Thyroid Disorder Additional Past Medical History / Comment(s): thyroid nodules, autoimmune disease of antiphospholipid antibody syndrome-- more prone to DVT but no DVT history per patient History of Any Multi-Drug Resistant Organisms: None Reported Past Surgical History: Hysterectomy Additional Past Surgical History / Comment(s): partial hysterectomy, vein ablation in right left of greater saphenous vein, D&C times three, previous thyroid biopsy times 5 Past Anesthesia/Blood Transfusion Reactions: No Reported Reaction Past Psychological History: No Psychological Hx Reported Smoking Status: Never smoker - Past Family History Mother Additional Family Medical History / Comment(s): multiple myeloma, irregular heart rate Father Additional Family Medical History / Comment(s): sarcoidosis and irregular heart rate General Exam - General Exam Comments Initial Comments: General: Appears in no acute distress. HEAD: Normal with no signs of head trauma. EYES: PERRLA, EOMI, conjunctiva normal, no discharge. ENT: Hearing grossly intact, normal oropharynx. RESPIRATORY: Clear breath sounds bilaterally. No wheezes, rales, or rhonchi. C/V: Patient is tachycardic with an irregular rhythm. S1 and S2 auscultated. No peripheral edema. Peripheral pulses 2+ intact throughout. ABD: Abd is soft, nontender, nondistended EXT: Normal range of motion, no obvious deformity SKIN: No rashes or lesions observed on exposed skin. NEURO: Alert and oriented x 4. Cranial nerves II-XII intact. No focal sensory or strength deficits. Limitations: no limitations Course Vital Signs 05/06/24 05/06/24 05/06/24 08:42 09:00 09:25 Temperature 97.9 F Pulse Rate 120 H 161 H 116 H Respiratory 18 20 20 Rate Blood Pressure 130/85 127/96 136/79 O2 Sat by Pulse 100 96 96 Oximetry 05/06/24 05/06/24 05/06/24 10:00 10:15 11:15 Temperature Pulse Rate 107 H 141 H 105 H Respiratory 20 19 20 Rate Blood Pressure 124/77 124/77 107/77 O2 Sat by Pulse 98 97 97 Oximetry 05/06/24 13:30 Temperature Pulse Rate 108 H Respiratory 18 Rate Blood Pressure 122/75 O2 Sat by Pulse 98 Oximetry Medical Decision Making - Medical Decision Making Was pt. sent in by a medical professional or institution (MATT Mcnally, RUG REPAIRER, urgent care, hospital, or jail...) When possible be specific @ -No Did you speak to anyone other than the patient for history (EMS, parent, family, police, friend...)? What history was obtained from this source @ -No Did you review nursing and triage notes (agree or disagree)? Why? @ -I reviewed and agree with nursing and triage notes Were old charts reviewed (outside hosp., previous admission, EMS record, old EKG, old radiological studies, urgent care reports/EKG's, jail records)? Report findings @ -No old charts were reviewed Differential Diagnosis (chest pain, altered mental status, abdominal pain women, abdominal pain men, vaginal bleeding, weakness, fever, dyspnea, syncope, headache, dizziness, GI bleed, back pain, seizure, CVA, palpatations, mental health, musculoskeletal)? @ -New onset atrial fibrillation with RVR, PE, DVT, ACS. This list is not all inclusive. EKG interpreted by me (3pts min.). @ -As above X-rays interpreted by me (1pt min.). @ -Chest x-ray shows no obvious acute cardiopulmonary process. CT interpreted by me (1pt min.). @ -CT chest revealed no evidence of pulmonary embolism. Concern for possible pneumonia by radiology however patient has no symptoms. U/S interpreted by me (1pt. min.). @ -Gallbladder ultrasound unremarkable. DVT ultrasound negative for bilateral lower extremity DVT. What testing was considered but not performed or refused? (CT, X-rays, U/S, labs)? Why? @ -None What meds were considered but not given or refused? Why? @ -None Did you discuss the management of the patient with other professionals (jefe green i.e. , PA, RUG REPAIRER, lab, RT, psych nurse, social work instructor, back tender paper machine, teacher, [employer] revenue officer, onsite case manager)? Give summary @ -Discussed with the admitting provider, Dr. Hazel who accepted the adm ission for [facility] call. Was smoking cessation discussed for >3mins.? @ -No Was critical care preformed (if so, how long)? @ -Yes, 42 minutes. Were there social determinants of health that impacted care today? How? (Homelessness, low income, unemployed, alcoholism, drug addiction, transportation, low edu. Level, literacy, decrease access to med. care, alf, rehab)? @ -No Was there de-escalation of care discussed even if they declined (Discuss DNR or withdrawal of care, Hospice)? DNR status @ -No What co-morbidities impacted this encounter? (DM, HTN, Smoking, COPD, CAD, Cancer, CVA, ARF, Chemo, Hep., AIDS, mental health diagnosis, sleep apnea, morbid obesity)? @ -None Was patient admitted / discharged? Hospital course, mention meds given and route, prescriptions, significant lab abnormalities, going to OR and other pertinent info. @ -Based on patient's presentation and physical exam, patient appears to be in new onset atrial fibrillation with RVR based on EKG. We will obtain new onset A-fib workup including screening for PE, ACS. She was in agreement this plan. She was started on Cardizem drip as well as given aspirin. Patient will be initiated on heparin therapy as well. She was in agreement this plan. EKG showed A-fib with RVR. Chest x-ray unremarkable. Laboratory studies remarkable for D-dimer of 1.29, patient also has nonspecific elevations in her LFTs with no symptoms. Bilirubin slightly elevated 2.4 with no symptoms. I did recommend ultrasound of the gallbladder, bilateral lower extremities, as well as CT angiogram to rule out PE. She was in agreement this plan. Heart rate is improved in the low 100s at this time. Ultrasounds were unremarkable. Gallbladder appears within normal limits. No evidence of DVT. CTPE negative for PE. On reevaluation, I updated the patient. She will be admitted to the hospital for management of new onset A-fib. She was in agreement this plan. Will trend the troponin. Cardiology consulted. Echo ordered. I spoke with the admitting provider, city call Dr. Hazel who accepted the admission. Undiagnosed new problem with uncertain prognosis? @ -No Drug Therapy requiring intensive monitoring for toxicity (Heparin, Nitro, Insulin, Cardizem)? @ -Cardizem, heparin Were any procedures done? @ -No Diagnosis/symptom? @ -New onset A-fib with RVR Acute, or Chronic, or Acute on Chronic? @ -Acute Uncomplicated (without systemic symptoms) or Complicated (systemic symptoms)? @ -Complicated Side effects of treatment? @ -No Exacerbation, Progression, or Severe Exacerbation? @ -No Poses a threat to life or bodily function? How? (Chest pain, [place], [place], pneumonia, PE, COPD, DKA, ARF, appy, cholecystitis, CVA, Diverticulitis, Homicidal, Suicidal, threat to staff... and all critical care pts) @ -Yes - Lab Data Result diagrams: 05/06/24 09:08 05/06/24 09:08 Lab Results 05/06/24 05/06/24 05/06/24 Range/Units 09:08 09:08 09:08 WBC 10.1 (3.8-10.6) k/uL RBC 4.60 (3.80-5.40) m/uL Hgb 13.6 (11.4-16.0) gm/dL Hct 40.5 (34.0-46.0) % MCV 88.0 (80.0-100.0) fL MCH 29.5 (25.0-35.0) pg MCHC 33.6 (31.0-37.0) g/dL RDW 12.6 (11.5-15.5) % Plt Count 311 (150-450) k/uL MPV 9.2 Neutrophils % 72 % Lymphocytes % 13 % Monocytes % 5 % Eosinophils % 8 % Basophils % 0 % Neutrophils # 7.3 (1.3-7.7) k/uL Lymphocytes # 1.3 (1.0-4.8) k/uL Monocytes # 0.5 (0-1.0) k/uL Eosinophils # 0.8 H (0-0.7) k/uL Basophils # 0.0 (0-0.2) k/uL PT 9.8 L (10.0-12.5) sec INR 0.9 (<1.2) APTT 22.6 (22.0-30.0) sec D-Dimer 1.29 H (<0.60) mg/L FEU Sodium (137-145) mmol/L Potassium (3.5-5.1) mmol/L Chloride (98-107) mmol/L Carbon Dioxide (22-30) mmol/L Anion Gap mmol/L BUN (7-17) mg/dL Creatinine (0.52-1.04) mg/dL Est GFR (CKD-EPI)AfAm (>60 ml/min/1.73 sqM) Est GFR (CKD-EPI)NonAf (>60 ml/min/1.73 sqM) Glucose (74-99) mg/dL Calcium (8.4-10.2) mg/dL Magnesium (1.6-2.3) mg/dL Total Bilirubin (0.2-1.3) mg/dL AST (14-36) U/L ALT (4-34) U/L Alkaline Phosphatase (38-126) U/L Troponin I (0.000-0.034) ng/mL NT-Pro-B Natriuret Pep pg/mL Total Protein (6.3-8.2) g/dL Albumin (3.5-5.0) g/dL Urine Color Colorless Urine Appearance Clear (Clear) Urine pH 6.5 (5.0-8.0) Ur Specific [place] 1.003 (1.001-1.035) Urine Protein Negative (Negative) Urine Glucose (UA) Negative (Negative) Urine Ketones 1+ H (Negative) Urine Blood Negative (Negative) Urine Nitrite Negative (Negative) Urine Bilirubin Negative (Negative) Urine Urobilinogen <2.0 (<2.0) mg/dL Ur Leukocyte Esterase Negative (Negative) Influenza Type A (PCR) (Not Detectd) Influenza Type B (PCR) (Not Detectd) RSV (PCR) (Not Detectd) SARS-CoV-2 (PCR) (Not Detectd) 05/06/24 05/06/24 05/06/24 Range/Units 09:08 09:08 09:08 WBC (3.8-10.6) k/uL RBC (3.80-5.40) m/uL Hgb (11.4-16.0) gm/dL Hct (34.0-46.0) % MCV (80.0-100.0) fL MCH (25.0-35.0) pg MCHC (31.0-37.0) g/dL RDW (11.5-15.5) % Plt Count (150-450) k/uL MPV Neutrophils % % Lymphocytes % % Monocytes % % Eosinophils % % Basophils % % Neutrophils # (1.3-7.7) k/uL Lymphocytes # (1.0-4.8) k/uL Monocytes # (0-1.0) k/uL Eosinophils # (0-0.7) k/uL Basophils # (0-0.2) k/uL PT (10.0-12.5) sec INR (<1.2) APTT (22.0-30.0) sec D-Dimer (<0.60) mg/L FEU Sodium 142 (137-145) mmol/L Potassium 4.1 (3.5-5.1) mmol/L Chloride 106 (98-107) mmol/L Carbon Dioxide 24 (22-30) mmol/L Anion Gap 12 mmol/L BUN 12 (7-17) mg/dL Creatinine 0.59 (0.52-1.04) mg/dL Est GFR (CKD-EPI)AfAm >90 (>60 ml/min/1.73 sqM) Est GFR (CKD-EPI)NonAf >90 (>60 ml/min/1.73 sqM) Glucose 132 H (74-99) mg/dL Calcium 9.7 (8.4-10.2) mg/dL Magnesium 2.1 (1.6-2.3) mg/dL Total Bilirubin 2.4 H (0.2-1.3) mg/dL AST 102 H (14-36) U/L ALT 204 H (4-34) U/L Alkaline Phosphatase 383 H (38-126) U/L Troponin I 0.020 (0.000-0.034) ng/mL NT-Pro-B Natriuret Pep 2660 pg/mL Total Protein 8.0 (6.3-8.2) g/dL Albumin 3.9 (3.5-5.0) g/dL Urine Color Urine Appearance (Clear) Urine pH (5.0-8.0) Ur Specific [place] (1.001-1.035) Urine Protein (Negative) Urine Glucose (UA) (Negative) Urine Ketones (Negative) Urine Blood (Negative) Urine Nitrite (Negative) Urine Bilirubin (Negative) Urine Urobilinogen (<2.0) mg/dL Ur Leukocyte Esterase (Negative) Influenza Type A (PCR) Not Detected (Not Detectd) Influenza Type B (PCR) Not Detected (Not Detectd) RSV (PCR) Not Detected (Not Detectd) SARS-CoV-2 (PCR) Not Detected (Not Detectd) - EKG Data -: EKG Interpreted by Me EKG Comments: 12-lead Electrocardiogram Interpretation Note EKG was reviewed and interpreted by myself. 12-lead ECG performed at 0851 is interpreted by me as revealing atrial fibrillation with RVR at a rate of 167 beats per minute. [place] is normal. QRS durations 80 ms, QTc is 312 ms.. There were no ST or T wave abnormalities to suggest myocardial ischemia or injury. R wave progression across the precordium was satisfactory. By my interpretation this EKG is non-diagnostic for acute ischemia. Critical Care Time Critical Care Time: Yes Total Critical Care Time: 42 Disposition Clinical Impression: Atrial fibrillation with RVR Disposition: ADMITTED IP TO THIS HOSP Condition: Stable Referrals: None,Stated [Primary Care Provider] - 1-2 days Time of Disposition: 13:19
[2024-05-06] MEDS: IPRATROPIUM-ALBUTEROL 3 ML NEB INHALATION SCH (15:34)
[2024-05-06] MEDS: methylPREDNISolone SOD SUCCI 125 MG/2 ML VIAL IV ONE (17:51)
[2024-05-06 18:21] LABS: ALT 181 U/L (4-34); AST 86 U/L (14-36); Albumin 3.8 g/dL (3.5-5.0); Alkaline Phosphatase 378 U/L (38-126); Bilirubin, Delta 0.7 mg/dL (0.0-0.2); Bilirubin,Unconjugated 1.1 mg/dL (0.0-1.1); Total Bilirubin 1.8 mg/dL (0.2-1.3); Total Protein 7.6 g/dL (6.3-8.2)
[2024-05-06] MEDS: HEPARIN SODIUM 1,000 UN/ML (10ML VL) IV PRN (18:38)
[2024-05-06] MEDS: HYDROcodone/APAP 5-325MG 1 EACH TAB PO PRN (20:34)
[2024-05-06] MEDS: LORATADINE 10 MG TAB PO SCH (20:35)
[2024-05-06] MEDS: ASPIRIN 325 MG TAB PO SCH (20:35)
[2024-05-06] MEDS: SODIUM CHLORIDE 0.9% 1,000 ML IV SCH (21:11)
[2024-05-06] MEDS: methylPREDNISolone SOD SUCCI 40 MG/ML 1 ML VIAL IV SCH (23:50)
--- NOTE | 2024-05-07 01:44 | P.CNPUL ---
History of Present Illness Consult date: 05/07/24 Requesting physician: Td Hazel Reason for consult: other (Groundglass opacities) Chief complaint: Heart palpitations History of present illness: Patient is a 59-year-old female with past medical history significant for psoriasis, antiphospholipid syndrome. Currently in between primary care providers. She presents to the emergency department yesterday morning with a chief complaint of heart palpitations. He started yesterday on awakening in bed. She did have some associated shortness of breath at that time. On arrival to the emergency department she was found to be in atrial fibrillation with rapid ventricular response, rate of 167 bpm. Subsequently, started on Cardizem infusion at 10 mg/h and heparin infusion per protocol. No history of atrial fibrillation. Of note, approximately 2 weeks ago she reports sore throat and fever followed by symmetric polyarthritis involving her elbows, hands, hips, knees. She does have history of psoriasis and previously thought to have p soriatic arthritis. Insurance reportedly would not cover Biologics, not on any current systemic treatment. Reported sore throat was not associated with cough, runny nose, postnasal drip, sinus congestion or pressure. No reported sick contacts. Negative for influenza, RSV, COVID. As stated, patient does have history of APS. No history of DVT/PE. D-dimer was elevated and a chest CT angio protocol was initiated. This did not show any obvious pulmonary embolism. Scattered nodular groundglass opacities bilaterally with upper lobe predominance. No significant cardiomegaly. No pleural effusions. CBC, unremarkable without leukocytosis. CMP: Sodium 142, potassium 4.1, chloride 106, serum bicarb 24, BUN 12, creatinine 0.59, glucose 132. LFTs are elevated with an AST of 102, ALT of 204, ALP of 383. Troponins mildly elevated at 0.02, 0.042, and 0.04 respectively. NT proBNP elevated at 2660. TSH 1.38. Patient is currently being evaluated on the cardiac stepdown unit. Cardizem infusion at 5 mg/min. Also, heparin infusion continues per protocol. She may have converted back to normal sinus rhythm as her heart rate is regular. She is relatively asymptomatic. Not dyspneic. No lightheadedness or reported syncopal events. No chest pain. No lower extremity edema. No orthopnea or PND. She is currently resting comfortably on room air. SpO2 is 99%. Stable appearance. Review of Systems Constitutional: Reports fatigue, Reports fever, Denies chills, Denies night sweats, Denies weight gain, Denies weight loss Ears, nose, mouth and throat: Reports sore throat, Denies headache, Denies nasal congestion, Denies post-nasal drip, Denies sinus pain, Denies sinus pressure Cardiovascular: Reports palpitations, Denies chest pain, Denies leg edema, Denies lightheadedness, Denies orthopnea, Denies paroxysmal nocturnal dyspnea, Denies syncope Respiratory: Reports dyspnea, Denies cough, Denies cough with sputum, Denies hemoptysis, Denies respiratory infections, Denies wheezing Gastrointestinal: Denies abdominal pain, Denies change in bowel habits, Denies constipation, Denies diarrhea, Denies nausea, Denies vomiting Genitourinary: Denies dysuria Musculoskeletal: Denies hot joints, Denies limitation of motion, Denies myalgias, Denies redness of joints Musculoskeletal: bilateral: elbow pain, hand pain, hip pain, knee pain Integumentary: Reports dryness, Reports lesions, Reports pruritus, Denies rash Neurological: Denies seizures, Denies syncope Psychiatric: Denies anxiety, Denies depression Endocrine: Reports palpitations, Denies cold intolerance, Denies excessive sweating, Denies flushing Past Medical History Past Medical History: Skin Disorder, Thyroid Disorder Additional Past Medical History / Comment(s): thyroid nodules, autoimmune disease of antiphospholipid antibody syndrome-- more prone to DVT but no DVT history per patient, psoriasis History of Any Multi-Drug Resistant Organisms: None Reported Past Surgical History: Hysterectomy Additional Past Surgical History / Comment(s): partial hysterectomy, vein ablation in right left of greater saphenous vein, D&C times three, previous thyroid biopsy times 5 Past Anesthesia/Blood Transfusion Reactions: No Reported Reaction Past Psychological History: No Psychological Hx Reported Smoking Status: Never smoker Past Alcohol Use History: None Reported Past Drug Use History: None Reported - Past Family History Mother Additional Family Medical History / Comment(s): multiple myeloma, irregular heart rate Father Additional Family Medical History / Comment(s): sarcoidosis and irregular heart rate Medications and Allergies Home Medications Medication Instructions Recorded Confirmed Type Aspirin 325 mg PO HS 04/15/20 05/06/24 History Cetirizine HCl [Zyrtec] 10 mg PO HS 04/15/20 05/06/24 History Allergies Allergy/AdvReac Type Severity Reaction Status Date / Time cephalexin [From Keflex] Allergy Rash/Hives Verified 05/06/24 10:49 dapsone Allergy stopped Verified 05/06/24 10:49 breathing erythromycin base Allergy Rash/Hives Verified 05/06/24 10:49 diflunisal [From Dolobid] AdvReac Rash/Hives Verified 05/06/24 10:49 antibiotic Allergy Rash/Hives Uncoded 05/06/24 10:49 eye drops for cataract Allergy Rash/Hives Uncoded 05/06/24 10:49 surgery Physical Exam Vitals: Vital Signs Temp Pulse Pulse Resp BP BP Pulse Ox 05/06/24 23:44 97.8 F 88 19 111/68 97 05/06/24 20:38 99.6 F 106 H 19 126/76 99 05/06/24 18:18 99 F 110 H 16 140/90 100 05/06/24 17:00 110 H 16 05/06/24 16:36 101 H 20 114/67 97 05/06/24 15:42 115 H 05/06/24 15:34 104 H 05/06/24 14:45 101 H 19 123/73 97 05/06/24 13:30 108 H 18 122/75 98 05/06/24 11:15 105 H 20 107/77 97 05/06/24 10:15 141 H 19 124/77 97 05/06/24 10:00 107 H 20 124/77 98 05/06/24 09:25 116 H 20 136/79 96 05/06/24 09:00 161 H 20 127/96 96 05/06/24 08:42 97.9 F 120 H 18 130/85 100 Intake and Output 05/06/24 05/06/24 05/07/24 14:59 22:59 06:59 Intake Total 161.167 540 Balance 161.167 540 Intake: IV 10 Invasive Line 1 10 Intake, IV Titration 151.167 Amount Diltiazem 125 mg In 97.0 Sodium Chloride 0.9% 100 ml @ 5 MG/HR 5 mls/hr IV .Q24H [facility] Rx#:[id number] Heparin Sod,Pork in 0.45% 54.167 NaCl 25,000 unit In 0.45 % NaCl 1 250ml.bag @ 11. 917 UNITS/KG/HR 10 mls/hr IV .Q24H [facility] Rx#: [id number] Oral 540 Other: Voiding Method Toilet # Voids 2 Weight 83.915 kg 83.915 kg GENERAL EXAM: Alert, 59-year-old well-appearing female, comfortable in no apparent distress. HEAD: Normocephalic and atraumatic. Scaling plaques scalp EYES: Normal reaction of pupils, equal size. NOSE: Clear with pink turbinates. THROAT: No erythema or exudates. NECK: No masses, no JVD. CHEST: No chest wall deformity. LUNGS: Equal air entry with no crackles, wheeze, rhonchi or dullness. On room air. No conversational dyspnea or accessory muscle use.. CVS: S1 and S2 normal with no audible murmur, regular rhythm. No extra heart sounds ABDOMEN: No hepatosplenomegaly, active bowel sounds, no guarding or rigidity. SPINE: No scoliosis or deformity SKIN: bilateral lower extremity and feet exfoliating plaques. No pustules. CENTRAL NERVOUS SYSTEM: No focal deficits, tone is normal in all 4 extremities. EXTREMITIES: There is no peripheral edema, clubbing, or cyanosis. Peripheral pulses are intact. Joints currently nontender, nonerythemic, not hot. Results - Laboratory Findings CBC and BMP: 05/07/24 06:17 05/07/24 06:17 PT/INR, D-dimer PT 9.8 sec (10.0-12.5) L 05/06/24 09:08 INR 0.9 (<1.2) 05/06/24 09:08 D-Dimer 1.29 mg/L FEU (<0.60) H 05/06/24 09:08 Abnormal lab findings: Abnormal Labs 05/06/24 05/06/24 05/06/24 09:08 09:08 09:08 Eosinophils # 0.8 H PT 9.8 L D-Dimer 1.29 H Glucose Total Bilirubin Delta Bilirubin AST ALT Alkaline Phosphatase Troponin I Urine Ketones 1+ H 05/06/24 05/06/24 05/06/24 09:08 14:13 17:09 Eosinophils # PT D-Dimer Glucose 132 H Total Bilirubin 2.4 H Delta Bilirubin AST 102 H ALT 204 H Alkaline Phosphatase 383 H Troponin I 0.042 H* 0.040 H* Urine Ketones 05/06/24 17:09 Eosinophils # PT D-Dimer Glucose Total Bilirubin 1.8 H Delta Bilirubin 0.7 H AST 86 H ALT 181 H Alkaline Phosphatase 378 H Troponin I Urine Ketones - Diagnostic Findings Chest x-ray: image reviewed CT scan - chest: image reviewed Assessment and Plan Assessment: New onset atrial fibrillation with rapid ventricular response; currently with better controlled rate, currently on Cardizem at 5 mg/h and heparin infusions per protocol. Acute dyspnea, likely secondary to above, improved Scattered nodular groundglass opacities, with upper lobe predominance Elevated troponins, likely due to supply/demand mismatch Elevated D-dimer, chest angio protocol did not show any evidence of pulmonary embolism. Venous Doppler also negative for DVT. Elevated liver enzymes, undetermined significance, ultrasound of abdomen unremarkable History of psoriasis, reportedly not on any systemic treatment Symmetric polyarthritis, possibly secondary to above and psoriatic arthritis Recent pharyngitis, did not seek medical attention or antibiotics. History of antiphospholipid syndrome History of seasonal allergies Plan: Patient's medications, labs, imaging were reviewed Currently on room air, in no respiratory distress. SpO2 is 99%. Dyspnea was associated with patient's heart palpitations and likely secondary to atrial fibrillation with rapid ventricular response, which is currently better controlled. Cardiology following Transthoracic echocardiogram pending Continues on Cardizem infusion at 5 mg/h Also, on IV heparin infusion per protocol Viral screen negative for influenza, RSV, COVID Patient had recent bout of pharyngitis and subjective fever followed by symmetric polyarthritis Check GAS. Check CRP, ESR, RF We will continue to follow I have personally seen and examined the patient, performed the documentation and the assessment and plan as written. Number of minutes spent on the visit:20 This is a evaluation that was done along with the nurse practitioner. This evaluation was ongoing for 30 minutes.. The patient was hospitalized with A-fib RVR and currently in normal sinus rhythm. No cough. No sputum production. No fever or chills. I reviewed the CAT scan and there is no concerning pulmonary infiltration and the patient remains on room air oxygen. No active pulmonary issues. No smoking. No need for any inhalers or antibiotics. Management per cardiology. Time with Patient: Greater than 30
[2024-05-07 07:06] LABS: Prothrombin Time 10.7 sec (10.0-12.5)
[2024-05-07 07:07] LABS: Basophils % (A) 0 %; Eosinophils % (A) 0 %; HCT 34.5 % (34.0-46.0); HGB 11.3 gm/dL (11.4-16.0); Lymphocytes # (A) 1.2 k/uL (1.0-4.8); Lymphocytes % (A) 13 %; MCH 29.2 pg (25.0-35.0); MCHC 32.9 g/dL (31.0-37.0); MCV 88.9 fL (80.0-100.0); Mean Platelet Volume 8.5; Monocytes # (A) 0.1 k/uL (0-1.0); Monocytes % (A) 2 %; Neutrophils # (A) 8.1 k/uL (1.3-7.7); Neutrophils % (A) 85 %; Platelet Count 334 k/uL (150-450); RBC 3.88 m/uL (3.80-5.40); RDW 12.6 % (11.5-15.5); WBC 9.6 k/uL (3.8-10.6)
[2024-05-07 07:38] LABS: ALT 163 U/L (4-34); AST 66 U/L (14-36); African American GFR (CKD) >90 (>60 ml/min/1.73 sqM); Albumin 3.5 g/dL (3.5-5.0); Alkaline Phosphatase 376 U/L (38-126); Anion Gap 5 mmol/L; Blood Urea Nitrogen 10 mg/dL (7-17); Calcium 8.9 mg/dL (8.4-10.2); Carbon Dioxide 22 mmol/L (22-30); Chloride 110 mmol/L (98-107); Glucose 190 mg/dL (74-99); Non-African American GFR(CKD) >90 (>60 ml/min/1.73 sqM); Potassium 4.1 mmol/L (3.5-5.1); Sodium 137 mmol/L (137-145); Total Bilirubin 1.2 mg/dL (0.2-1.3)
[2024-05-07] MEDS: METOPROLOL TARTRATE 25 MG TAB PO SCH (09:40)
--- NOTE | 2024-05-07 11:28 | P.CRDCN ---
History of Present Illness History of present illness: HISTORY OF PRESENT ILLNESS: This is a 59-year-old female with a past medical history significant for psoriasis and antiphospholipid syndrome. Patient does not follow with a end polisher. We have been asked to see the patient in consultation for atrial fibrillation. Patient examined at the bedside. Patient presented to the hospital with a chief complaint of palpitations. The patient denied having any chest pain or pressure. She denied any shortness of breath. The patient was found to be in A-fib with RVR. She denies a history of atrial fibrillation. The patient was started on IV heparin and IV Cardizem. She has since converted to sinus mechanism and is maintaining sinus mechanism in the 90s at the time of examination. DIAGNOSTICS: - EKG reveals atrial fibrillation with RVR. Repeat EKG reveals sinus mechanism with no signs of acute ischemia. - Chest xray negative for acute process - Chest CTA: Negative for pulmonary embolism. Several scattered bilateral upper lobe and right middle lobe nodular groundglass opacities concerning for atypical infection versus inflammation versus other. - Laboratory data: WBC 9.6. Hemoglobin 11.3. Platelet count 334. Sodium 137. Potassium 4.1. BUN 10. Creatinine 0.46. AST 66. ALT 163. Troponin 0.020. 0.042. 0.040. TSH 1.380. - Current home cardiac medications include aspirin 325 mg at night - No previous echocardiogram, stress test, or cardiac catheterization available in EMR for review REVIEW OF SYSTEMS: At the time of my exam: CONSTITUTIONAL: Denies fever or chills. HEENT: Denies blurred vision, vision changes, or eye pain. Denies hemoptysis CARDIOVASCULAR: Denies chest pain. Denies orthopnea. Denies PND. Denies palpitations RESPIRATORY: Denies shortness of breath. GASTROINTESTINAL: Denies abdominal pain. Denies nausea or vomiting. HEMATOLOGIC: Denies bleeding disorders. GENITOURINARY: Denies any blood in urine. SKIN: Denies pruitis. Denies rash. PHYSICAL EXAM: VITAL SIGNS: Reviewed. GENERAL: Well-developed in no acute distress. HEENT: Head is normocephalic. Pupils are equal, round. Sclerae anicteric. Mucous membranes of the mouth are moist. Neck supple. No JVD or thyromegaly LUNGS: Respirations even and unlabored. Lungs essentially clear to auscultation bilaterally. HEART: Regular rate and rhythm. S1 and S2 heard. ABDOMEN: Soft. Nondistended. Nontender. EXTREMITIES: Normal range of motion. No clubbing or cyanosis. Peripheral pulses intact. No lower extremity edema NEUROLOGIC: Awake and alert. Oriented x 3. ASSESSMENT: Palpitations New onset paroxysmal atrial fibrillation with RVR, currently maintaining sinus mechanism Minimally elevated troponins, type II FL secondary to oxygen supply/demand mismatch secondary to A-fib with RVR, no evidence of acute coronary syndrome Transaminitis History of antiphospholipid syndrome History of psoriasis PLAN: Obtain 2D echo to assess cardiac structure and function Discontinue IV Cardizem Continue home dose of aspirin 325 mg as patient states she has prescribed this for her antiphospholipid syndrome Continue IV heparin until echocardiogram is resulted If no abnormalities are noted on echocardiogram, will discontinue IV heparin and continue with aspirin alone as patient's [id number] score is 1 (female) Further recommendations pending patient course Nurse practitioner note has been reviewed by physician. Signing provider agrees with the documented findings, assessment, and plan of care documented by ASSOCIATE PROFESSOR OF PHYSICS as a scribe. Past Medical History Past Medical History: Skin Disorder, Thyroid Disorder Additional Past Medical History / Comment(s): thyroid nodules, autoimmune disease of antiphospholipid antibody syndrome-- more prone to DVT but no DVT history per patient, psoriasis History of Any Multi-Drug Resistant Organisms: None Reported Past Surgical History: Hysterectomy Additional Past Surgical History / Comment(s): partial hysterectomy, vein ablation in right left of greater saphenous vein, D&C times three, previous thyroid biopsy times 5 Past Anesthesia/Blood Transfusion Reactions: No Reported Reaction Past Psychological History: No Psychological Hx Reported Smoking Status: Never smoker Past Alcohol Use History: None Reported Past Drug Use History: None Reported - Past Family History Mother Additional Family Medical History / Comment(s): multiple myeloma, irregular heart rate Father Additional Family Medical History / Comment(s): sarcoidosis and irregular heart rate Medications and Allergies Home Medications Medication Instructions Recorded Confirmed Type Aspirin 325 mg PO HS 04/15/20 05/06/24 History Cetirizine HCl [Zyrtec] 10 mg PO HS 04/15/20 05/06/24 History Allergies Allergy/AdvReac Type Severity Reaction Status Date / Time cephalexin [From Keflex] Allergy Rash/Hives Verified 05/06/24 10:49 dapsone Allergy stopped Verified 05/06/24 10:49 breathing erythromycin base Allergy Rash/Hives Verified 05/06/24 10:49 diflunisal [From Dolobid] AdvReac Rash/Hives Verified 05/06/24 10:49 antibiotic Allergy Rash/Hives Uncoded 05/06/24 10:49 eye drops for cataract Allergy Rash/Hives Uncoded 05/06/24 10:49 surgery Physical Exam Vitals: Vital Signs Temp Pulse Pulse Resp BP BP Pulse Ox 05/07/24 08:00 97.9 F 91 16 112/54 96 05/07/24 04:11 98 F 86 16 119/65 95 05/06/24 23:44 97.8 F 88 19 111/68 97 05/06/24 20:38 99.6 F 106 H 19 126/76 99 05/06/24 18:18 99 F 110 H 16 140/90 100 05/06/24 17:00 110 H 16 05/06/24 16:36 101 H 20 114/67 97 05/06/24 15:42 115 H 05/06/24 15:34 104 H 05/06/24 14:45 101 H 19 123/73 97 05/06/24 13:30 108 H 18 122/75 98 Intake and Output 05/06/24 05/07/24 05/07/24 22:59 06:59 14:59 Intake Total 161.167 646.806 250 Balance 161.167 646.806 250 Intake: IV 10 10 10 Invasive Line 1 10 10 10 Intake, IV Titration 151.167 96.806 Amount Diltiazem 125 mg In 97.0 Sodium Chloride 0.9% 100 ml @ 5 MG/HR 5 mls/hr IV .Q24H [facility] Rx#:[id number] Heparin Sod,Pork in 0.45% 54.167 96.806 NaCl 25,000 unit In 0.45 % NaCl 1 250ml.bag @ 11. 917 UNITS/KG/HR 10 mls/hr IV .Q24H [facility] Rx#: [id number] Oral 540 240 Other: Voiding Method Toilet Toilet Toilet # Voids 2 Weight 83.915 kg 86.5 kg Results 05/07/24 06:17 05/07/24 06:17 Cardiac Enzymes 05/06/24 05/06/24 05/06/24 Range/Units 14:13 17:09 17:09 AST 86 H (14-36) U/L Troponin I 0.042 H* 0.040 H* (0.000-0.034) ng/mL 05/07/24 Range/Units 06:17 AST 66 H (14-36) U/L Troponin I (0.000-0.034) ng/mL Coagulation 05/06/24 05/07/24 05/07/24 Range/Units 17:09 00:20 06:17 PT 10.7 (10.0-12.5) sec APTT 28.0 32.8 H (22.0-30.0) sec 05/07/24 Range/Units 08:32 PT (10.0-12.5) sec APTT 48.9 H (22.0-30.0) sec CBC 05/07/24 Range/Units 06:17 WBC 9.6 (3.8-10.6) k/uL RBC 3.88 (3.80-5.40) m/uL Hgb 11.3 L (11.4-16.0) gm/dL Hct 34.5 (34.0-46.0) % Plt Count 334 (150-450) k/uL Comprehensive Metabolic Panel 05/06/24 05/07/24 Range/Units 17:09 06:17 Sodium 137 (137-145) mmol/L Potassium 4.1 (3.5-5.1) mmol/L Chloride 110 H (98-107) mmol/L Carbon Dioxide 22 (22-30) mmol/L BUN 10 (7-17) mg/dL Creatinine 0.46 L (0.52-1.04) mg/dL Glucose 190 H (74-99) mg/dL Calcium 8.9 (8.4-10.2) mg/dL Unconjugated Bilirubin 1.1 (0.0-1.1) mg/dL AST 86 H 66 H (14-36) U/L ALT 181 H 163 H (4-34) U/L Alkaline Phosphatase 378 H 376 H (38-126) U/L Total Protein 7.6 7.0 (6.3-8.2) g/dL Albumin 3.8 3.5 (3.5-5.0) g/dL Current Medications Generic Name Dose Route Start Last Admin Trade Name Freq PRN Reason Stop Dose Admin Hydrocodone Bitart/Acetaminophen 1 each 05/06/24 20:30 05/07/24 00:37 Hydrocodone/Apap 5-325mg 1 Each Tab PO 1 each Q4HR PRN Administration Pain Albuterol/Ipratropium 3 ml 05/06/24 16:00 05/07/24 08:43 Ipratropium-Albuterol 3 Ml Neb INHALATION Not Given RT-QID [facility] Aspirin 325 mg 05/07/24 21:00 Aspirin 325 Mg Tab PO HS [facility] Heparin Sodium (Porcine) 0 unit 05/06/24 11:26 05/07/24 02:22 Heparin Sodium 1,000 Un/Ml (10ml Vl) IV 4,000 unit PER PROTOCOL PRN Administration Low PTT Protocol Heparin Sodium/Sodium Chloride 250 mls @ 10 mls/hr 05/06/24 11:30 05/07/24 02:22 25,000 unit/ Sodium Chloride IV 17.917 units/kg/hr .Q24H [facility] 15.035 mls/hr Titration Protocol 11.917 UNITS/KG/HR Sodium Chloride 1,000 mls @ 75 mls/hr 05/06/24 19:30 05/07/24 10:15 Saline 0.9% IV Not Given .[id number] [facility] Loratadine 10 mg 05/06/24 21:00 05/06/24 20:35 Loratadine 10 Mg Tab PO 10 mg HS [facility] Administration Methylprednisolone Sodium Succinate 40 mg 05/07/24 00:00 05/07/24 08:50 Methylprednisolone Sod Succi 40 Mg/Ml 1 Ml Vial IV 40 mg Q8HR [facility] Administration Metoprolol Tartrate 25 mg 05/07/24 09:15 05/07/24 09:40 Metoprolol Tartrate 25 Mg Tab PO 25 mg BID [facility] Administration Naloxone HCl 0.2 mg 05/06/24 13:19 Naloxone 0.4 Mg/Ml 1 Ml Vial IV Q2M PRN Opioid Reversal Ondansetron HCl 4 mg 05/06/24 13:19 Ondansetron 4 Mg/2 Ml Vial IVP Q8HR PRN Nausea And Vomiting Intake and Output 05/06/24 05/07/24 05/07/24 22:59 06:59 14:59 Intake Total 161.167 646.806 250 Balance 161.167 646.806 250 Intake: IV 10 10 10 Invasive Line 1 10 10 10 Intake, IV Titration 151.167 96.806 Amount Diltiazem 125 mg In 97.0 Sodium Chloride 0.9% 100 ml @ 5 MG/HR 5 mls/hr IV .Q24H [facility] Rx#:[id number] Heparin Sod,Pork in 0.45% 54.167 96.806 NaCl 25,000 unit In 0.45 % NaCl 1 250ml.bag @ 11. 917 UNITS/KG/HR 10 mls/hr IV .Q24H [facility] Rx#: [id number] Oral 540 240 Other: Voiding Method Toilet Toilet Toilet # Voids 2 Weight 83.915 kg 86.5 kg 05/07/24 06:17 05/07/24 06:17
--- NOTE | 2024-05-07 13:15 | CA ---
Transthoracic Echo Report Name: Tiffanie Huber Age: 59 Gender: F : 1965 Exam Date: 05/06/2024 16:53 Exam Location: [facility] Ht (in): 70 Wt (lb): 185 Ordering Physician: Chris Bolanos MD Attending/Referring Phys: Predictive Maintenance Specialist Naa Moscoso RDCS Procedure CPT: Indications: New onset afib Cardiac Hx: Technical Quality: Fair Contrast 1: Total Dose (mL): Contrast 2: Total Dose (mL): MEASUREMENTS (Male / Female) Normal Values 2D ECHO LV Diastolic Diameter PLAX 4.7 cm 4.2 - 5.9 / 3.9 - 5.3 cm LV Systolic Diameter PLAX 3.2 cm IVS Diastolic Thickness 1.0 cm 0.6 - 1.0 / 0.6 - 0.9 cm LVPW Diastolic Thickness 1.0 cm 0.6 - 1.0 / 0.6 - 0.9 cm LV Relative Wall Thickness 0.4 RV Internal Dim ED PLAX 2.7 cm LA Volume 54.1 cm??? 18 - 58 / 22 - 52 cm??? LA Volume Index 26.4 cm???/m??? 16 - 28 cm???/m??? M-MODE Aortic Root Diameter MM 2.5 cm LA Systolic Diameter MM 3.6 cm LA Ao Ratio MM 1.4 AV Cusp Separation MM 1.7 cm DOPPLER AV Peak Velocity 151.4 cm/s AV Peak Gradient 9.2 mmHg AV Mean Velocity 119.9 cm/s AV Mean Gradient 6.3 mmHg AV Velocity Time Integral 26.5 cm LVOT Peak Velocity 129.2 cm/s LVOT Peak Gradient 6.7 mmHg LVOT Velocity Time Integral 24.0 cm MV Area PHT 7.9 cm??? Mitral E Point Velocity 89.8 cm/s Mitral A Point Velocity 89.8 cm/s Mitral E to A Ratio 1.0 MV Deceleration Time 96.4 ms MV E' Velocity 11.8 cm/s Mitral E to MV E' Ratio 7.6 TR Peak Velocity 250.0 cm/s TR Peak Gradient 25.0 mmHg Right Ventricular Systolic Press 29.1 mmHg FINDINGS Left Ventricle Mildly increased left ventricular wall thickness. Left ventricular cavity size normal. Normal left ventricular systolic function with no obvious regional wall motion abnormalities. Left ventricular ejection fraction is estimated at 55-60 %. Grade 1 diastolic dysfunction. Right Ventricle Normal right ventricular size and function. Right ventricular systolic pressure within normal limits. Right Atrium Normal right atrial size. Left Atrium Mildly increased left atrial volume. Mitral Valve Structurally normal mitral valve. No evidence for mitral valve prolapse. No mitral stenosis. [id number] mitral regurgitation. Posteriorly directed mitral regurgitation jet. Aortic Valve Trileaflet aortic valve. No aortic valve stenosis or regurgitation. Tricuspid Valve Structurally normal tricuspid valve. Mild tricuspid regurgitation. Pulmonic Valve Structurally normal pulmonic valve. Pericardium No pericardial effusion. Aorta Normal size aortic root and proximal ascending aorta. CONCLUSIONS Left ventricular ejection fraction 55-60% RVSP 29 Mild to moderate mitral regurgitation Mild tricuspid regurgitation No pericardial effusion Previewed by: Dr. Krzysztof Calzada DO (Electronically Signed) Final Date: 07 May 2024 13:14
--- NOTE | 2024-05-07 14:12 | P.GSCN ---
History of Present Illness Consult date: 05/07/24 History of present illness: CHIEF COMPLAINT: Heart palpitations HISTORY OF PRESENT ILLNESS: This is a 59-year-old female who presented the hospital with heart palpitations and was found to have new onset of atrial fibrillation with RVR. She is followed by cardiology and currently on IV heparin. Surgical service has been consulted in regards to patient having elevated LFTs. Patient denies any abdominal pain. Denies any recent traveling. Denies any diarrhea, nausea or vomiting. She had a recent fever and multiple areas of joint pain last week. She denies any sore throat cough or congestion. Her LFTs are trending downwards. She had a gallbladder ultrasound completed which was unremarkable. Patient also reports that she had recently been on antibiotics for tooth abscess. PAST MEDICAL HISTORY: thyroid nodules, autoimmune disease of antiphospholipid antibody syndrome-- more prone to DVT but no DVT history per patient PAST SURGICAL HISTORY: Hysterectomy, vein ablation in right left of greater saphenous vein, D&C times three, previous thyroid biopsy times 5 MEDICATIONS: See below ALLERGIES: See below SOCIAL HISTORY: No illicit drug use. REVIEW OF SYSTEMS: CONSTITUTIONAL: Denies fever or chills. HEENT: Denies blurred vision, vision changes, or eye pain. Denies hemoptysis CARDIOVASCULAR: Denies chest pain or pressure. RESPIRATORY: No shortness of breath. GASTROINTESTINAL: See HPI for pertinent findings HEMATOLOGIC: Denies bleeding disorders. GENITOURINARY: Denies any blood in urine or increased urinary frequency. SKIN: Denies pruitis. Denies rash. PHYSICAL EXAM: VITAL SIGNS: Reviewed GENERAL: Well-developed in no acute distress. HEENT: No sclera icterus. Extraocular movements grossly intact. Moist buccal mucosa. Head is atraumatic, normocephalic. No nasal drainage. ABDOMEN: Soft. Nondistended. Nontender. Patient is nontender in the right upper quadrant. There is no rebound or guarding noted NEUROLOGIC: Alert and oriented. Cranial nerves II through XII grossly intact. LABORATORY DATA: WBC 9.6 Hgb 13.3 platelets 334 Sodium 137 potassium is 4.1 creatinine 0.46 LFTs total bilirubin 2.4 down to 1.2 AST 102 down to 66 ALT 209 down to 163 alk phos 383 down to 376 IMAGING: Gallbladder ultrasound reports unremarkable right upper quadrant ultrasound. No evidence of gallstones or gallbladder wall thickening. ASSESSMENT: 1. Elevated LFTs possibly related to medications. LFTs are trending downwards. Patient has no pain in the right upper quadrant. She is tolerating diet. Gallbladder ultrasound was unremarkable. PLAN: -No surgical intervention planned at this time -Check acute hepatitis panel -Repeat CMP in AM Physician Leather Currier note has been reviewed by physician. Signing provider agrees with the documented findings, assessment, and plan of care. Past Medical History Past Medical History: Skin Disorder, Thyroid Disorder Additional Past Medical History / Comment(s): thyroid nodules, autoimmune disease of antiphospholipid antibody syndrome-- more prone to DVT but no DVT history per patient, psoriasis History of Any Multi-Drug Resistant Organisms: None Reported Past Surgical History: Hysterectomy Additional Past Surgical History / Comment(s): partial hysterectomy, vein ablation in right left of greater saphenous vein, D&C times three, previous thyroid biopsy times 5 Past Anesthesia/Blood Transfusion Reactions: No Reported Reaction Past Psychological History: No Psychological Hx Reported Smoking Status: Never smoker Past Alcohol Use History: None Reported Past Drug Use History: None Reported - Past Family History Mother Additional Family Medical History / Comment(s): multiple myeloma, irregular heart rate Father Additional Family Medical History / Comment(s): sarcoidosis and irregular heart rate Medications and Allergies Home Medications Medication Instructions Recorded Confirmed Type Aspirin 325 mg PO HS 04/15/20 05/06/24 History Cetirizine HCl [Zyrtec] 10 mg PO HS 04/15/20 05/06/24 History Allergies Allergy/AdvReac Type Severity Reaction Status Date / Time cephalexin [From Keflex] Allergy Rash/Hives Verified 05/06/24 10:49 dapsone Allergy stopped Verified 05/06/24 10:49 breathing erythromycin base Allergy Rash/Hives Verified 05/06/24 10:49 diflunisal [From Dolobid] AdvReac Rash/Hives Verified 05/06/24 10:49 antibiotic Allergy Rash/Hives Uncoded 05/06/24 10:49 eye drops for cataract Allergy Rash/Hives Uncoded 05/06/24 10:49 surgery Surgical - Exam Vital Signs Temp Pulse Resp BP Pulse Ox 97.9 F 120 H 18 130/85 100 05/06/24 08:42 05/06/24 08:42 05/06/24 08:42 05/06/24 08:42 05/06/24 08:42 Results - Labs 10/17/24 06:17 05/07/24 06:17 Abnormal Lab Results - Last 24 Hours (Table) 05/06/24 05/06/24 05/06/24 Range/Units 14:13 17:09 17:09 Hgb (11.4-16.0) gm/dL Neutrophils # (1.3-7.7) k/uL ESR (0-30) mm/Hr APTT (22.0-30.0) sec Chloride (98-107) mmol/L Creatinine (0.52-1.04) mg/dL Glucose (74-99) mg/dL Total Bilirubin 1.8 H (0.2-1.3) mg/dL Delta Bilirubin 0.7 H (0.0-0.2) mg/dL AST 86 H (14-36) U/L ALT 181 H (4-34) U/L Alkaline Phosphatase 378 H (38-126) U/L Troponin I 0.042 H* 0.040 H* (0.000-0.034) ng/mL C-Reactive Protein (<1.0) mg/dL 05/07/24 05/07/24 05/07/24 Range/Units 00:20 00:20 00:20 Hgb (11.4-16.0) gm/dL Neutrophils # (1.3-7.7) k/uL ESR 51 H (0-30) mm/Hr APTT 32.8 H (22.0-30.0) sec Chloride (98-107) mmol/L Creatinine (0.52-1.04) mg/dL Glucose (74-99) mg/dL Total Bilirubin (0.2-1.3) mg/dL Delta Bilirubin (0.0-0.2) mg/dL AST (14-36) U/L ALT (4-34) U/L Alkaline Phosphatase (38-126) U/L Troponin I (0.000-0.034) ng/mL C-Reactive Protein 6.8 H (<1.0) mg/dL 05/07/24 05/07/24 05/07/24 Range/Units 06:17 06:17 08:32 Hgb 11.3 L (11.4-16.0) gm/dL Neutrophils # 8.1 H (1.3-7.7) k/uL ESR (0-30) mm/Hr APTT 48.9 H (22.0-30.0) sec Chloride 110 H (98-107) mmol/L Creatinine 0.46 L (0.52-1.04) mg/dL Glucose 190 H (74-99) mg/dL Total Bilirubin (0.2-1.3) mg/dL Delta Bilirubin (0.0-0.2) mg/dL AST 66 H (14-36) U/L ALT 163 H (4-34) U/L Alkaline Phosphatase 376 H (38-126) U/L Troponin I (0.000-0.034) ng/mL C-Reactive Protein (<1.0) mg/dL Diabetes panel 05/06/24 05/06/24 05/07/24 Range/Units 17:09 17:09 06:17 Sodium 137 (137-145) mmol/L Potassium 4.1 (3.5-5.1) mmol/L Chloride 110 H (98-107) mmol/L Carbon Dioxide 22 (22-30) mmol/L BUN 10 (7-17) mg/dL Creatinine 0.46 L (0.52-1.04) mg/dL Glucose 190 H (74-99) mg/dL Hemoglobin A1c 6.0 (<=6.0) % Calcium 8.9 (8.4-10.2) mg/dL AST 86 H 66 H (14-36) U/L ALT 181 H 163 H (4-34) U/L Alkaline Phosphatase 378 H 376 H (38-126) U/L Total Protein 7.6 7.0 (6.3-8.2) g/dL Albumin 3.8 3.5 (3.5-5.0) g/dL Thyroid panel 05/06/24 Range/Units 17:09 TSH 1.380 (0.465-4.680) mIU/L Calcium panel 05/06/24 05/07/24 Range/Units 17:09 06:17 Calcium 8.9 (8.4-10.2) mg/dL Albumin 3.8 3.5 (3.5-5.0) g/dL Pituitary panel 05/06/24 05/07/24 Range/Units 17:09 06:17 Sodium 137 (137-145) mmol/L Potassium 4.1 (3.5-5.1) mmol/L Chloride 110 H (98-107) mmol/L Carbon Dioxide 22 (22-30) mmol/L BUN 10 (7-17) mg/dL Creatinine 0.46 L (0.52-1.04) mg/dL Glucose 190 H (74-99) mg/dL Calcium 8.9 (8.4-10.2) mg/dL TSH 1.380 (0.465-4.680) mIU/L Adrenal panel 05/06/24 05/07/24 Range/Units 17:09 06:17 Sodium 137 (137-145) mmol/L Potassium 4.1 (3.5-5.1) mmol/L Chloride 110 H (98-107) mmol/L Carbon Dioxide 22 (22-30) mmol/L BUN 10 (7-17) mg/dL Creatinine 0.46 L (0.52-1.04) mg/dL Glucose 190 H (74-99) mg/dL Calcium 8.9 (8.4-10.2) mg/dL Total Bilirubin 1.8 H 1.2 (0.2-1.3) mg/dL AST 86 H 66 H (14-36) U/L ALT 181 H 163 H (4-34) U/L Alkaline Phosphatase 378 H 376 H (38-126) U/L Total Protein 7.6 7.0 (6.3-8.2) g/dL Albumin 3.8 3.5 (3.5-5.0) g/dL
[2024-05-07 15:45] LABS: Hepatitis A Antibody IgM Nonreactive (Nonreactive); Hepatitis B Core IgM Nonreactive (Nonreactive); Hepatitis B Surface Antigen Nonreactive (Nonreactive); Hepatitis C IgG Antibody Nonreactive (Nonreactive)
[2024-05-07] MEDS: ASPIRIN 325 MG TAB PO SCH (20:59)
--- NOTE | 2024-05-08 03:44 | PN ---
PROGRESS NOTE SUBJECTIVE: A 59-year-old white female, possible viral pneumonia with ground glass appearance in her lungs. She is doing better. Give her Solu-Medrol. Prognosis guarded. AFib likely been treated with Eliquis baby aspirin. Possible discharge home tomorrow as she is feeling better at this time. Prognosis guarded. Ambulate as tolerated. OBJECTIVE: LUNGS: Clear. GI: Soft. Hematology: Negative Homans. Prognosis guarded. MMODL / IJN: [id number] /
[2024-05-08 04:08] VITALS: TEMP 97.9
[2024-05-08 07:16] LABS: ALT 165 U/L (4-34); AST 82 U/L (14-36); African American GFR (CKD) >90 (>60 ml/min/1.73 sqM); Albumin 3.2 g/dL (3.5-5.0); Alkaline Phosphatase 306 U/L (38-126); Anion Gap 4 mmol/L; Blood Urea Nitrogen 13 mg/dL (7-17); Calcium 8.9 mg/dL (8.4-10.2); Carbon Dioxide 26 mmol/L (22-30); Chloride 110 mmol/L (98-107); Glucose 125 mg/dL (74-99); Non-African American GFR(CKD) >90 (>60 ml/min/1.73 sqM); Sodium 140 mmol/L (137-145); Total Bilirubin 0.5 mg/dL (0.2-1.3); Total Protein 6.6 g/dL (6.3-8.2)
[2024-05-08] MEDS: METOPROLOL SUCCINATE (ER) 50 MG TAB.ER.24H PO SCH (09:53)
[2024-05-08 11:05] VITALS: RESP 16
--- NOTE | 2024-05-08 12:51 | P.PN ---
Subjective HISTORY OF PRESENT ILLNESS: This is a 59-year-old female with a past medical history significant for psoriasis and antiphospholipid syndrome. Patient does not follow with a information assistant. We have been asked to see the patient in consultation for atrial fibrillation. Patient examined at the bedside. Patient presented to the hospital with a chief complaint of palpitations. The patient denied having any chest pain or pressure. She denied any shortness of breath. The patient was found to be in A-fib with RVR. She denies a history of atrial fibrillation. The patient was started on IV heparin and IV Cardizem. She has since converted to sinus mechanism and is maintaining sinus mechanism in the 90s at the time of examination. DIAGNOSTICS: - EKG reveals atrial fibrillation with RVR. Repeat EKG reveals sinus mechanism with no signs of acute ischemia. - Chest xray negative for acute process - Chest CTA: Negative for pulmonary embolism. Several scattered bilateral upper lobe and right middle lobe nodular groundglass opacities concerning for atypical infection versus inflammation versus other. - Laboratory data: WBC 9.6. Hemoglobin 11.3. Platelet count 334. Sodium 137. Potassium 4.1. BUN 10. Creatinine 0.46. AST 66. ALT 163. Troponin 0.020. 0.042. 0.040. TSH 1.380. - Current home cardiac medications include aspirin 325 mg at night - No previous echocardiogram, stress test, or cardiac catheterization available in EMR for review 05/08/2024 Patient examined this morning at the bedside. Patient currently denies chest pain or pressure. She denies shortness of breath. Telemetry reveals sinus mechanism with a heart rate in the [id number]. Patient does report she had some mild flushing yesterday after receiving her metoprolol tartrate. Echocardiogram performed revealing ejection fraction 55 to 60%, mild to moderate MR and mild TR. PHYSICAL EXAM: VITAL SIGNS: Reviewed. GENERAL: Well-developed in no acute distress. HEENT: Head is normocephalic. Pupils are equal, round. Sclerae anicteric. Mucous membranes of the mouth are moist. Neck supple. No JVD or thyromegaly LUNGS: Respirations even and unlabored. Lungs essentially clear to auscultation bilaterally. HEART: Regular rate and rhythm. S1 and S2 heard. ABDOMEN: Soft. Nondistended. Nontender. EXTREMITIES: Normal range of motion. No clubbing or cyanosis. Peripheral pulses intact. No lower extremity edema NEUROLOGIC: Awake and alert. Oriented x 3. ASSESSMENT: Palpitations New onset paroxysmal atrial fibrillation with RVR, currently maintaining sinus mechanism Minimally elevated troponins, type II [place] secondary to oxygen supply/demand mismatch secondary to A-fib with RVR, no evidence of acute coronary syndrome Transaminitis History of antiphospholipid syndrome History of psoriasis PLAN: Discontinue IV heparin and continue with aspirin alone as patient's [id number] score is 1 (female) Change metoprolol tartrate to metoprolol succinate 50 mg daily Will plan for outpatient stress testing Patient to follow-up postdischarge in the office with Dr. Delgado Patient is stable for discharge home today from a cardiology standpoint Nurse practitioner note has been reviewed by physician. Signing provider agrees with the documented findings, assessment, and plan of care documented by [employer] as a scribe. Objective - Vital Signs Vital signs: Vital Signs Temp 97.9 F 05/08/24 03:56 Pulse 104 H 05/08/24 08:30 Resp 16 05/08/24 08:30 BP 137/66 05/08/24 08:30 Pulse Ox 96 05/08/24 08:30 FiO2 Intake & Output 05/07/24 05/08/24 05/08/24 18:59 06:59 18:59 Intake Total 260 1020 Balance 260 1020 Weight 86.4 kg Intake: IV 20 20 Invasive Line 1 20 20 Oral 240 1000 Other: Voiding Method Toilet Toilet Toilet # Voids 1 1 # Bowel Movements 1 - Labs CBC & Chem 7: 05/07/24 06:17 05/08/24 06:25 Labs: Abnormal Lab Results - Last 24 Hours (Table) 05/08/24 05/08/24 Range/Units 06:25 06:25 APTT 37.0 H (22.0-30.0) sec Chloride 110 H (98-107) mmol/L Glucose 125 H (74-99) mg/dL AST 82 H (14-36) U/L ALT 165 H (4-34) U/L Alkaline Phosphatase 306 H (38-126) U/L Albumin 3.2 L (3.5-5.0) g/dL
--- NOTE | 2024-05-08 14:00 | P.PN ---
Subjective Progress Note Date: 05/08/24 Patient is a 59-year-old female with past medical history significant for psoriasis, antiphospholipid syndrome. Currently in between primary care providers. She presents to the emergency department yesterday morning with a chief complaint of heart palpitations. He started yesterday on awakening in bed. She did have some associated shortness of breath at that time. On arrival to the emergency department she was found to be in atrial fibrillation with rapid ventricular response, rate of 167 bpm. Subsequently, started on Cardizem infusion at 10 mg/h and heparin infusion per protocol. No history of atrial fibrillation. Of note, approximately 2 weeks ago she reports sore throat and fever followed by symmetric polyarthritis involving her elbows, hands, hips, knees. She does have history of psoriasis and previously thought to have psoriatic arthritis. Insurance reportedly would not cover Biologics, not on any current systemic treatment. Reported sore throat was not associated with cough, runny nose, postnasal drip, sinus congestion or pressure. No reported sick contacts. Negative for influenza, RSV, COVID. As stated, patient does have history of APS. No history of DVT/PE. D-dimer was elevated and a chest CT angio protocol was initiated. This did not show any obvious pulmonary embolism. Scattered nodular groundglass opacities bilaterally with upper lobe predominance. No significant cardiomegaly. No pleural effusions. CBC, unremarkable without leukocytosis. CMP: Sodium 142, potassium 4.1, chloride 106, serum bicarb 24, BUN 12, creatinine 0.59, glucose 132. LFTs are elevated with an AST of 102, ALT of 204, ALP of 383. Troponins mildly elevated at 0.02, 0.042, and 0.04 respectively. NT proBNP elevated at 2660. TSH 1.38. Patient is currently being evaluated on the cardiac stepdown unit. Cardizem infusion at 5 mg/min. Also, heparin infusion continues per protocol. She may have converted back to normal sinus rhythm as her heart rate is regular. She is relatively asymptomatic. Not dyspneic. No lightheadedness or reported syncopal events. No chest pain. No lower extremity edema. No orthopnea or PND. She is currently resting comfortably on room air. SpO2 is 99%. Stable appearance. On 05/08/2024, patient is being seen for a follow-up. The patient is doing extremely well. The patient is on room air oxygen. The patient's cardiac rhythm is sinus. The patient will not require anticoagulation. The plan is to discharge the patient home today. No pulmonary complications. No hypoxemia. No chest pain. No pleurisy. No hemoptysis. Objective - Vital Signs Vital signs: Vital Signs Temp 97.9 F 05/08/24 03:56 Pulse 104 H 05/08/24 08:30 Resp 16 05/08/24 08:30 BP 137/66 05/08/24 08:30 Pulse Ox 96 05/08/24 08:30 FiO2 Intake & Output 05/07/24 05/08/24 05/08/24 18:59 06:59 18:59 Intake Total 260 1020 Balance 260 1020 Weight 86.4 kg Intake: IV 20 20 Invasive Line 1 20 20 Oral 240 1000 Other: Voiding Method Toilet Toilet Toilet # Voids 1 1 # Bowel Movements 1 - Exam GENERAL EXAM: Alert, 59-year-old well-appearing female, comfortable in no apparent distress. HEAD: Normocephalic and atraumatic. Scaling plaques scalp EYES: Normal reaction of pupils, equal size. NOSE: Clear with pink turbinates. THROAT: No erythema or exudates. NECK: No masses, no JVD. CHEST: No chest wall deformity. LUNGS: Equal air entry with no crackles, wheeze, rhonchi or dullness. On room air. No conversational dyspnea or accessory muscle use.. CVS: S1 and S2 normal with no audible murmur, regular rhythm. No extra heart sounds ABDOMEN: No hepatosplenomegaly, active bowel sounds, no guarding or rigidity. SPINE: No scoliosis or deformity SKIN: bilateral lower extremity and feet exfoliating plaques. No pustules. CENTRAL NERVOUS SYSTEM: No focal deficits, tone is normal in all 4 extremities. EXTREMITIES: There is no peripheral edema, clubbing, or cyanosis. Peripheral pulses are intact. Joints currently nontender, nonerythemic, not hot. - Labs CBC & Chem 7: 05/07/24 06:17 05/08/24 06:25 Labs: Abnormal Lab Results - Last 24 Hours (Table) 05/08/24 05/08/24 Range/Units 06:25 06:25 APTT 37.0 H (22.0-30.0) sec Chloride 110 H (98-107) mmol/L Glucose 125 H (74-99) mg/dL AST 82 H (14-36) U/L ALT 165 H (4-34) U/L Alkaline Phosphatase 306 H (38-126) U/L Albumin 3.2 L (3.5-5.0) g/dL Assessment and Plan Assessment: New onset atrial fibrillation with rapid ventricular response; recovered Acute dyspnea, likely secondary to above, improved Scattered nodular groundglass opacities, with upper lobe predominance Elevated troponins, likely due to supply/demand mismatch Elevated D-dimer, chest angio protocol did not show any evidence of pulmonary embolism. Venous Doppler also negative for DVT. Elevated liver enzymes, undetermined significance, ultrasound of abdomen unremarkable History of psoriasis, reportedly not on any systemic treatment Symmetric polyarthritis, possibly secondary to above and psoriatic arthritis Recent pharyngitis, did not seek medical attention or antibiotics. History of antiphospholipid syndrome History of seasonal allergies Plan: No active pulmonary issues. The patient can be discharged from pulmonary standpoint. The patient's cardiac rhythm is back to sinus. The patient will not require anticoagulation per cardiology.
--- NOTE | 2024-05-08 14:20 | P.PN ---
Subjective Progress Note Date: 05/08/24 CHIEF COMPLAINT: Heart palpitations HISTORY OF PRESENT ILLNESS: Patient followed by cardiology and admitted for A- fib RVR. Surgical service following in regards to patient's LFTs elevated LFTs. LFTs are trending downwards. Patient continues to have no abdominal pain. She is tolerating diet. She denies any alcohol use. Gallbladder ultrasound was negative hepatitis panel negative. Total bili remains normal 0.5 AST 66 up to 82 ALT 1 63-1 65 and alk phos 376-3 06 PHYSICAL EXAM: VITAL SIGNS: Reviewed. GENERAL: Well-developed in no acute distress. HEENT: No sclera icterus. Extraocular movements grossly intact. Moist buccal mucosa. Head is atraumatic, normocephalic. ABDOMEN: Soft. Nondistended. Nontender. No tenderness in the right upper quadrant NEUROLOGIC: Alert and oriented. Cranial nerves II through XII grossly intact. ASSESSMENT: 1. Elevated LFTs possibly related to medications. Patient had been on antibiotics recently. LFTs are trending downwards. Patient has no pain in the right upper quadrant. She is tolerating diet. Gallbladder ultrasound was unremarkable. PLAN: -Patient can be discharged from surgical standpoint -Recommend repeating LFTs in the outpatient setting Physician Spinning Lathe Operator Automatic note has been reviewed by physician. Signing provider agrees with the documented findings, assessment, and plan of care. Objective - Vital Signs Vital signs: Vital Signs Temp 97.9 F 05/08/24 03:56 Pulse 104 H 05/08/24 08:30 Resp 16 05/08/24 08:30 BP 137/66 05/08/24 08:30 Pulse Ox 96 05/08/24 08:30 FiO2 Intake & Output 05/07/24 05/08/24 05/08/24 18:59 06:59 18:59 Intake Total 260 1020 Balance 260 1020 Weight 86.4 kg Intake: IV 20 20 Invasive Line 1 20 20 Oral 240 1000 Other: Voiding Method Toilet Toilet Toilet # Voids 1 1 2 # Bowel Movements 1 - Labs CBC & Chem 7: 05/07/24 06:17 05/08/24 06:25 Labs: Abnormal Lab Results - Last 24 Hours (Table) 05/08/24 05/08/24 Range/Units 06:25 06:25 APTT 37.0 H (22.0-30.0) sec Chloride 110 H (98-107) mmol/L Glucose 125 H (74-99) mg/dL AST 82 H (14-36) U/L ALT 165 H (4-34) U/L Alkaline Phosphatase 306 H (38-126) U/L Albumin 3.2 L (3.5-5.0) g/dL
[2024-05-08 14:34] VITALS: BP 128/62; PULSE 85
--- NOTE | 2024-05-11 14:06 | P.DS ---
Providers Date of admission: 05/06/24 13:22 Expected date of discharge: 05/08/24 Attending physician: Td Hazel Consults: 05/06/24 13:19 Consult Physician Routine Consulting Provider: [facility] Consult Reason/Comments: new onset afib with rvr Do you want consulting provider notified?: Yes 05/06/24 16:03 Consult Physician Routine Consulting Provider: Dean Mcfarland Consult Reason/Comments: viral pneumonia Do you want consulting provider notified?: Yes 05/06/24 17:21 Consult Physician Routine Consulting Provider: Yuni Nuno Consult Reason/Comments: elevated LFTs Do you want consulting provider notified?: Yes Primary care physician: Stated None Hospital Course: Final diagnosis Palpitations, new onset atrial fibrillation with RVR, currently sinus rhythm History of antiphospholipid syndrome History of extensive psoriasis Elevated troponins, likely type II [place] secondary to oxygen supply/demand mismatch, ACS ruled out GI prophylaxis DVT prophylaxis Full code Discharge disposition Patient is being discharged in a stable condition with guarded prognosis to home. Patient will follow-up with Dr. Dipesh Carrasco in the outpatient setting upon discharge. Patient is to continue with current medications and close outpatient follow-up with cardiology as scheduled. Total time taken is greater than 35 minutes. Hospital course This is a 59-year-old female who was recently admitted with palpitations found to be new onset atrial fibrillation with RVR. Patient followed by cardiology and has been transitioned to metoprolol recommending outpatient follow-up and further testing in the outpatient setting. Patient reports to feeling well and would like to go home. Patient denies any chest pain at this time and no further palpitations noted. Please refer to cardiology note for further HPI. Currently no reports of chest pain, shortness of breath, or palpitations. Patient is afebrile. No reports of nausea or vomiting and patient is tolerating diet. Patient will be discharged home today. Guarded prognosis. Physical exam: Gen: This is a 59-year-old female who is awake, alert and oriented x 3, well- developed, well-nourished HEENT: Head is atraumatic, normocephalic. Pupils equal, round. Sclerae is anicteric. NECK: Supple. No JVD. No lymphadenopathy. No thyromegaly. LUNGS: Clear to auscultation. No wheezes or rhonchi. No intercostal retractions. HEART: S1, S2 are muffled, currently rate controlled ABDOMEN: Soft. Bowel sounds are present. No masses. No tenderness. EXTREMITIES: No pedal edema. No calf tenderness. NEUROLOGICAL: Patient is awake, alert and oriented x3. Cranial nerves 2 through 12 are grossly intact. Please refer to medication reconciliation sheet for a list of medications. The impression and plan of care has been dictated by Grace Wiseman, Nurse Practitioner as directed. Dr. Parmjit MD I have performed a history and examination and MDM of this patient, discussed the same with the dictator, and agree with the dictator's assessment and plan as written ,documented as a scribe. Based on total visit time, I have performed more than 50% of the visit. Patient Condition at Discharge: Stable Plan - Discharge Summary Discharge Rx Participant: Yes New Discharge Prescriptions: New Metoprolol Succinate (ER) [Toprol XL] 50 mg PO DAILY 30 Days #30 tab Continue Cetirizine HCl [Zyrtec] 10 mg PO HS Aspirin 325 mg PO HS Discharge Medication List Aspirin 325 mg PO HS 04/15/20 [History] Cetirizine HCl [Zyrtec] 10 mg PO HS 04/15/20 [History] Metoprolol Succinate (ER) [Toprol XL] 50 mg PO DAILY 30 Days #30 tab 05/08/24 [Rx] Follow up Appointment(s)/Referral(s): Lashaun Molina MD [STAFF PHYSICIAN] - 1 Week Jay Delgado MD [STAFF PHYSICIAN] - 2 Weeks (Office will call patient to schedule appt. ) Ambulatory/Diagnostic Orders: Comprehensive Metabolic Panel [LAB.AMB] Time Frame: 3 Days, Location: None Selected Activity/Diet/Wound Care/Special Instructions: Activity limited until follow-up Continue taking medications as prescribed Follow-up with cardiology in 1 to 2 weeks Follow-up and establish with a primary care provider Discharge/Stand Alone Forms: Area PCPs Discharge Disposition: HOME SELF-CARE
== END 2024-05-08 14:23 | disposition home or self-care (01) ==
LOC: EC 08:39 → 3SCARD 13:22
PROVIDERS: ADMIT Family Medicine; ATTEND Family Medicine
DX: I48.0 Paroxysmal atrial fibrillation (principal); R79.89 Other specified abnormal findings of blood chemistry; R74.01 Elevation of levels of liver transaminase levels; D68.61 Antiphospholipid syndrome; L40.9 Psoriasis, unspecified; M13.0 Polyarthritis, unspecified; R91.8 Other nonspecific abnormal finding of lung field; J30.2 Other seasonal allergic rhinitis; Z11.52 Encounter for screening for COVID-19; Z88.1 Allergy status to other antibiotic agents
CPT/HCPCS: 96376 ×3; 96366 ×3; 96375; 96365; 96367; 99291; 36415; 94640; 93005; 93306; 87651; 85379; 83880; 80053 ×3; 80076; 80074; 85652; 84443; 83735; 84484; 85025 ×2; 85610 ×2; 85730 ×3; 86140; 86431; 81003; 87081; 83036; 84145; 87636; 71045; 76705; 93970; 71275; G0378 ×3; J1644 ×3; Q9967; J2919 ×2

== ENCOUNTER 2024-05-30 22:32 | Emergency (ER) | payer BC ==
--- NOTE | 2024-05-30 22:52 | ED ---
Nausea/Vomiting/Diarrhea HPI - General Source: patient, RN notes reviewed Mode of arrival: ambulatory Limitations: no limitations - History of Present Illness MD complaint: nausea, vomiting, diarrhea, abdominal pain Onset/Timin -: hour(s) Time: 14:00 Description of Diarrhea: blood-streaked Associated Abdominal Pain: Yes Location: LLQ, RLQ Severity scale (1-10): 8 Quality: sharp Consistency: intermittent <Roger Leach - Last Filed: 05/30/24 22:49> <John Ferraro - Last Filed: 06/11/24 04:17> - General Stated complaint: NVD abd pain Time Seen by Provider: 05/30/24 22:47 - History of Present Illness Initial comments: Quick note: This is a 59-year-old female presenting with abdominal pain and bright red blood per rectum x 5 hours. Patient states she had a hamburger and sweet potato fries for lunch with subsequent nausea, vomiting and diarrhea. Patient states vomiting has resolved since then but diarrhea has progressed to bright red blood per rectum since 6 PM tonight. Patient endorses associated sharp, intermittent lower abdominal pain (8 out of 10) with associated nausea. Patient endorses new recent diagnosis of A-fib but only takes 1 full aspirin daily as an anticoagulant. (Roger Leach) - Related Data Home Medications Medication Instructions Recorded Confirmed Aspirin 325 mg PO HS 04/15/20 05/06/24 Cetirizine HCl [Zyrtec] 10 mg PO HS 04/15/20 05/06/24 Previous Rx's Medication Instructions Recorded Metoprolol Succinate (ER) [Toprol 50 mg PO DAILY 30 Days #30 tab 05/08/24 XL] Ciprofloxacin HCl [Cipro] 500 mg PO Q12HR #14 tablet 05/31/24 Dicyclomine [Bentyl] 20 mg PO QID #15 tablet 05/31/24 Ondansetron Odt [Zofran ODT] 4 mg PO Q8HR PRN #10 tab 05/31/24 Allergies Allergy/AdvReac Type Severity Reaction Status Date / Time cephalexin [From Keflex] Allergy Rash/Hives Verified 05/30/24 23:00 dapsone Allergy stopped Verified 05/30/24 23:00 breathing erythromycin base Allergy Rash/Hives Verified 05/30/24 23:00 diflunisal [From Dolobid] AdvReac Rash/Hives Verified 05/30/24 23:00 antibiotic Allergy Rash/Hives Uncoded 05/30/24 23:00 eye drops for cataract Allergy Rash/Hives Uncoded 05/30/24 23:00 surgery Review of Systems ROS Other: All systems not noted in ROS Statement are negative. <Roger Leach - Last Filed: 05/30/24 22:49> ROS Other: All systems not noted in ROS Statement are negative. Constitutional: Reports: chills. Denies: fever Respiratory: Denies: cough, dyspnea Cardiovascular: Denies: chest pain, palpitations, orthopnea, edema, syncope Gastrointestinal: Reports: abdominal pain, nausea, vomiting, diarrhea, hematochezia. Denies: melena Genitourinary: Denies: dysuria, hematuria Musculoskeletal: Denies: back pain Skin: Denies: rash Neurological: Denies: headache, weakness, numbness <John Ferraro - Last Filed: 06/11/24 04:17> ROS Statement: Those systems with pertinent positive or pertinent negative responses have been documented in the HPI. Past Medical History Past Medical History: Skin Disorder, Thyroid Disorder Additional Past Medical History / Comment(s): thyroid nodules, autoimmune disease of antiphospholipid antibody syndrome-- more prone to DVT but no DVT history per patient, psoriasis History of Any Multi-Drug Resistant Organisms: None Reported Past Surgical History: Hysterectomy Additional Past Surgical History / Comment(s): partial hysterectomy, vein abl ation in right left of greater saphenous vein, D&C times three, previous thyroid biopsy times 5 Past Anesthesia/Blood Transfusion Reactions: No Reported Reaction Past Psychological History: No Psychological Hx Reported Smoking Status: Never smoker Past Alcohol Use History: None Reported Past Drug Use History: None Reported - Past Family History Mother Additional Family Medical History / Comment(s): multiple myeloma, irregular heart rate Father Additional Family Medical History / Comment(s): sarcoidosis and irregular heart rate <Roger Leach - Last Filed: 05/30/24 22:49> General Exam <Roger Leach - Last Filed: 05/30/24 22:49> General appearance: alert, in no apparent distress Head exam: Present: atraumatic, normocephalic Eye exam: Present: normal appearance. Absent: scleral icterus, conjunctival injection ENT exam: Present: normal oropharynx Neck exam: Present: normal inspection Respiratory exam: Present: normal lung sounds bilaterally. Absent: respiratory distress, wheezes, rales, rhonchi, stridor, accessory muscle use Cardiovascular Exam: Present: regular rate, normal rhythm, normal heart sounds. Absent: systolic murmur, diastolic murmur, rubs, gallop GI/Abdominal exam: Present: soft. Absent: distended, tenderness, guarding, rebound, rigid, mass, pulsatile mass, hernia Extremities exam: Present: normal inspection, normal capillary refill. Absent: pedal edema, calf tenderness Back exam: Present: normal inspection. Absent: CVA tenderness (R), CVA tenderness (L) Neurological exam: Present: alert Skin exam: Present: warm, dry, intact, normal color. Absent: rash <John Ferraro - Last Filed: 06/11/24 04:17> - General Exam Comments Initial Comments: Visual Physical Exam Vital signs reviewed General: Well-appearing, nontoxic, no acute distress. Head: Normocephalic, atraumatic Eyes: PERRLA, EOMI ENT: Airway patent Chest: Nonlabored breathing Skin: No visual rash, normal skin tone Neuro: Alert and oriented 3 Musculoskeletal: No gross abnormalities (Roger Leach) Course Vital Signs 05/30/24 05/31/24 22:54 01:28 Temperature 98 F 98.1 F Pulse Rate 95 76 Respiratory 18 18 Rate Blood Pressure 159/85 141/82 O2 Sat by Pulse 95 97 Oximetry Medical Decision Making <Roger Leach - Last Filed: 05/30/24 22:49> - Lab Data Result diagrams: 05/30/24 23:33 05/30/24 23:33 <John Ferraro - Last Filed: 06/11/24 04:17> - Medical Decision Making I completed the quick note portion of this chart signed DAMI Arceo (Roger Leach) The patient had CT scan of the abdomen and pelvis that I interpreted as negative for free air or obstruction. There does appear to be degree of colitis Was pt. sent in by a medical professional or institution ([facility], [facility], urgent care, hospital, or senior care...) When possible be specific @ -[No] Did you speak to anyone other than the patient for history (EMS, parent, family, police, friend...)? What history was obtained from this source @ -[No] Did you review nursing and triage notes (agree or disagree)? Why? @ -[I reviewed and agree with nursing and triage notes] Were old charts reviewed (outside hosp., previous admission, EMS record, old EKG, old radiological studies, urgent care reports/EKG's, senior care records)? Report findings @ -[No old charts were reviewed] Differential Diagnosis (chest pain, altered mental status, abdominal pain women, abdominal pain men, vaginal bleeding, weakness, fever, dyspnea, syncope, headache, dizziness, GI bleed, back pain, seizure, CVA, palpatations, mental health, musculoskeletal)? @ -[Differential Abdominal Pain Women: Appendicitis, Cholecystitis, diverticulosis, ischemic bowel, pancreatitis, hepatitis, UTI, gastroenteritis, AAA, incarcerated hernia, bowel obstruction, constipation, inflammatory bowel, hepatitis, peptic ulcer disease, splenic in farction, perforated viscus, vulvitis, ovarian torsion, PID, kidney stone, placenta abruption, this is not meant to be an all-inclusive list EKG interpreted by me (3pts min.). @ -[As above] X-rays interpreted by me (1pt min.). @ -[None done] CT interpreted by me (1pt min.). @ -I interpreted as above U/S interpreted by me (1pt. min.). @ -[None done] What testing was considered but not performed or refused? (CT, X-rays, U/S, labs)? Why? @ -[None] What meds were considered but not given or refused? Why? @ -[None] Did you discuss the management of the patient with other professionals (aki walker i.e. , PA, [facility], lab, RT, psych nurse, psychologist social, assistant spa manager, teacher, corporate compliance officer, continuous pillowcase cutter)? Give summary @ -[No] Was smoking cessation discussed for >3mins.? @ -[No] Was critical care preformed (if so, how long)? @ -[No] Were there social determinants of health that impacted care today? How? (Homelessness, low income, unemployed, alcoholism, drug addiction, transportation, low edu. Level, literacy, decrease access to med. care, [facility], rehab)? @ -[No] Was there de-escalation of care discussed even if they declined (Discuss DNR or withdrawal of care, Hospice)? DNR status @ -[No] What co-morbidities impacted this encounter? (DM, HTN, Smoking, COPD, CAD, Cancer, CVA, ARF, Chemo, Hep., AIDS, mental health diagnosis, sleep apnea, morbid obesity)? @ -[None] Was patient admitted / discharged? Hospital course, mention meds given and route, prescriptions, significant lab abnormalities, going to OR and other pertinent info. @ -[Patient is 59-year-old woman here to have evaluation of abdominal pain and passing blood. The patient's workup does reveal degree of colitis. The patient has had some relief with medications here and will would prefer to go home. Will have patient have close follow-up and give course of antibiotics for possibility of infectious colitis. Discussed appropriate further care as well as return parameters. Undiagnosed new problem with uncertain prognosis? @ -[No] Drug Therapy requiring intensive monitoring for toxicity (Heparin, Nitro, I nsulin, Cardizem)? @ -[No] Were any procedures done? @ -[No] Diagnosis/symptom? @ -[Acute colitis Acute, or Chronic, or Acute on Chronic? @ -[Acute Uncomplicated (without systemic symptoms) or Complicated (systemic symptoms)? @ -[Uncomplicated Side effects of treatment? @ -[No] Exacerbation, Progression, or Severe Exacerbation? @ -[No] Poses a threat to life or bodily function? How? (Chest pain, [place], [place], pneumonia, PE, COPD, DKA, ARF, appy, cholecystitis, CVA, Diverticulitis, Homicidal, S uicidal, threat to staff... and all critical care pts) @ -[Low likelihood (John Ferraro) - Lab Data Lab Results 05/30/24 05/30/24 05/30/24 Range/Units 23:33 23:33 23:33 WBC 12.2 H (3.8-10.6) k/uL RBC 4.45 (3.80-5.40) m/uL Hgb 13.0 (11.4-16.0) gm/dL Hct 39.7 (34.0-46.0) % MCV 89.1 (80.0-100.0) fL MCH 29.2 (25.0-35.0) pg MCHC 32.7 (31.0-37.0) g/dL RDW 13.0 (11.5-15.5) % Plt Count 366 (150-450) k/uL MPV 7.6 Neutrophils % 83 % Lymphocytes % 9 % Monocytes % 5 % Eosinophils % 2 % Basophils % 0 % Neutrophils # 10.1 H (1.3-7.7) k/uL Lymphocytes # 1.1 (1.0-4.8) k/uL Monocytes # 0.6 (0-1.0) k/uL Eosinophils # 0.3 (0-0.7) k/uL Basophils # 0.0 (0-0.2) k/uL ESR 70 H (0-30) mm/Hr PT 10.5 (10.0-12.5) sec INR 0.9 (<1.2) APTT 22.4 (22.0-30.0) sec Sodium 132 L (137-145) mmol/L Potassium 4.9 (3.5-5.1) mmol/L Chloride 104 (98-107) mmol/L Carbon Dioxide 21 L (22-30) mmol/L Anion Gap 7 mmol/L BUN 23 H (7-17) mg/dL Creatinine 0.63 (0.52-1.04) mg/dL Est GFR (CKD-EPI)AfAm >90 (>60 ml/min/1.73 sqM) Est GFR (CKD-EPI)NonAf >90 (>60 ml/min/1.73 sqM) Glucose 153 H (74-99) mg/dL Calcium 8.9 (8.4-10.2) mg/dL Total Bilirubin 1.1 (0.2-1.3) mg/dL AST 47 H (14-36) U/L ALT 45 H (4-34) U/L Alkaline Phosphatase 181 H (38-126) U/L Total Protein 8.0 (6.3-8.2) g/dL Albumin 3.9 (3.5-5.0) g/dL Amylase 56 (30-110) U/L Lipase 90 (23-300) U/L Disposition <Roger Leach - Last Filed: 05/30/24 22:49> Is patient prescribed a controlled substance at d/c from ED?: No <TrachJohn gonzalez - Last Filed: 06/11/24 04:17> Clinical Impression: Colitis Disposition: HOME SELF-CARE Condition: Good Instructions (If sedation given, give patient instructions): Colitis (ED) Prescriptions: Dicyclomine [Bentyl] 20 mg PO QID #15 tablet Ciprofloxacin HCl [Cipro] 500 mg PO Q12HR #14 tablet Ondansetron Odt [Zofran ODT] 4 mg PO Q8HR PRN #10 tab PRN Reason: Nausea Referrals: Td Mchugh MD [Primary Care Provider] - 1-2 days Maddy Delgado MD [STAFF PHYSICIAN] - 1-2 days
[2024-05-30 22:59] VITALS: RESP 18
[2024-05-30] MEDS: ONDANSETRON 4 MG/2 ML VIAL IVP STA (23:41)
[2024-05-30 23:51] LABS: Basophils % (A) 0 %; Eosinophils # (A) 0.3 k/uL (0-0.7); Eosinophils % (A) 2 %; HCT 39.7 % (34.0-46.0); Lymphocytes # (A) 1.1 k/uL (1.0-4.8); Lymphocytes % (A) 9 %; MCH 29.2 pg (25.0-35.0); MCHC 32.7 g/dL (31.0-37.0); MCV 89.1 fL (80.0-100.0); Mean Platelet Volume 7.6; Monocytes # (A) 0.6 k/uL (0-1.0); Monocytes % (A) 5 %; Neutrophils # (A) 10.1 k/uL (1.3-7.7); Neutrophils % (A) 83 %; Platelet Count 366 k/uL (150-450); RBC 4.45 m/uL (3.80-5.40); WBC 12.2 k/uL (3.8-10.6)
[2024-05-30] MEDS: DICYCLOMINE 20 MG TAB PO STA (23:54)
[2024-05-30 23:59] LABS: ALT 45 U/L (4-34); AST 47 U/L (14-36); African American GFR (CKD) >90 (>60 ml/min/1.73 sqM); Albumin 3.9 g/dL (3.5-5.0); Alkaline Phosphatase 181 U/L (38-126); Amylase 56 U/L (30-110); Anion Gap 7 mmol/L; Blood Urea Nitrogen 23 mg/dL (7-17); Calcium 8.9 mg/dL (8.4-10.2); Carbon Dioxide 21 mmol/L (22-30); Chloride 104 mmol/L (98-107); Glucose 153 mg/dL (74-99); Lipase 90 U/L (23-300); Non-African American GFR(CKD) >90 (>60 ml/min/1.73 sqM); Sodium 132 mmol/L (137-145); Total Bilirubin 1.1 mg/dL (0.2-1.3)
[2024-05-31 00:05] LABS: Potassium 4.9 mmol/L (3.5-5.1)
[2024-05-31 00:08] LABS: INR 0.9 (<1.2); Partial Thromboplastin Time 22.4 sec (22.0-30.0); Prothrombin Time 10.5 sec (10.0-12.5)
--- NOTE | 2024-05-31 01:10 | CT ---
EXAM: CT Abdomen and Pelvis With Intravenous Contrast CLINICAL HISTORY: Abdominal pain, hematochezia TECHNIQUE: Axial computed tomography images of the abdomen and pelvis with intravenous contrast. CTDI is 21 mGy and DLP is 1155.8 mGy-cm. This CT exam was performed using one or more of the following dose reduction techniques: automated exposure control, adjustment of the mA and/or kV according to patient size, and/or use of iterative reconstruction technique. COMPARISON: 04-28-2012. FINDINGS: Lung bases: Unremarkable. No mass. No consolidation. ABDOMEN: Liver: Unremarkable. No mass. Gallbladder and bile ducts: Unremarkable. No calcified stones. No ductal dilation. Pancreas: Unremarkable. No mass. No ductal dilation. Spleen: Unremarkable. No splenomegaly. Adrenals: Unremarkable. No mass. Kidneys and ureters: No obstructive uropathy. No obstructing renal or ureteral calculi. No hydronephrosis or hydroureter. Stomach and bowel: No obstruction or ileus. Mild diffuse colonic wall thickening. No evidence for diverticulitis. PELVIS: Appendix: No findings to suggest acute appendicitis. Bladder: Contracted. No mass. Reproductive: Unremarkable as visualized. ABDOMEN and PELVIS: Intraperitoneal space: No free air. No free fluid. Bones/joints: No acute fracture. Degenerative changes of the spine. Soft tissues: Unremarkable. Vasculature: Unremarkable. No abdominal aortic aneurysm. Lymph nodes: Unremarkable. No enlarged lymph nodes. IMPRESSION: Mild diffuse colonic wall thickening consistent with a nonspecific colitis.
[2024-05-31 01:34] VITALS: BP 141/82; PULSE 76; TEMP 98.1
[2024-05-31] MEDS: MORPHINE SULFATE 4 MG/ML SYRINGE IV STA (01:34)
[2024-05-31] MEDS: LEVOFLOXACIN 500 MG TAB PO STA (01:41)
[2024-05-31 11:30] LABS: Erythrocyte Sedimentation Rate 70 mm/Hr (0-30)
== END 2024-05-31 01:45 | disposition home or self-care (01) ==
LOC: EC 22:32
DX: K52.9 Noninfective gastroenteritis and colitis, unspecified (principal); Z88.1 Allergy status to other antibiotic agents; Z88.8 Allergy status to other drugs, medicaments and biological substances
CPT/HCPCS: 36415; 80053; 85652; 82150; 83690; 85025; 85610; 85730; 74177; 99284; 96374; 96375; J2270; J2405; Q9967

== ENCOUNTER → 2025-01-04 | Outpatient (CLI) | payer BC ==
[2025-01-04 18:31] LABS: Basophils # (A) 0.09 X 10*3/uL (0.00-0.10); Basophils % (A) 0.9 %; Eosinophils # (A) 0.55 X 10*3/uL (0.04-0.35); Eosinophils % (A) 5.8 %; HCT 40.1 % (37.2-46.3); HGB 12.9 g/dL (12.0-15.0); Lymphocytes # (A) 1.83 X 10*3/uL (0.90-5.00); Lymphocytes % (A) 19.2 %; MCH 29.3 pg (27.0-32.0); MCHC 32.2 g/dL (32.0-37.0); MCV 90.9 FL (80.0-97.0); Mean Platelet Volume 11.7 FL (9.5-12.2); Monocytes # (A) 0.81 X 10*3/uL (0.20-1.00); Monocytes % (A) 8.5 %; NRBC Per 100 WBC 0 X 10*3/uL (0.00-0.01); Neutrophils # (A) 6.25 X 10*3/uL (1.80-7.70); Neutrophils % (A) 65.4 %; Platelet Count 308 X 10*3/uL (140-440); RBC 4.41 X 10*6/uL (4.10-5.20); RDW 12.4 % (11.5-14.5); WBC 9.55 X 10*3/uL (4.50-10.00)
[2025-01-04 18:39] LABS: ALT 25 U/L (8-44); AST 24 U/L (13-35)
== END | disposition home or self-care (01) ==
LOC: LABWHC1 14:53
PROVIDERS: ATTEND Nurse Practitioner
DX: L40.0 Psoriasis vulgaris (principal); L40.59 Other psoriatic arthropathy; Z79.899 Other long term (current) drug therapy
CPT/HCPCS: 36415; 82565; 84450; 84460; 85025; 86480